=== PATIENT | female | born 2000 | race Caucasian/White ===

== ENCOUNTER → 2024-03-02 11:56 | Outpatient (REF) | payer BC, SELFPAY ==
[2024-03-02 12:44] LABS: % Basophils 1.2 % (0-2); % Immature Granulocytes 0.6 % (0-0.5); % Lymphocytes 22.4 % (20.5-51.1); % Neutrophils 65.8 % (42.2-75.2); Absolute Basophils 0.1 10^3/uL (0-0.2); Absolute Eosinophils 0.1 10^3/uL (0-0.7); Absolute Immature Granulocytes 0.1 10^3/uL (0-0.05); Absolute Lymphocytes 1.7 10^3/uL (1.2-3.4); Absolute Monocytes 0.7 10^3/uL (0.1-0.6); Absolute Neutrophils 5.1 10^3/uL (1.4-6.5); Hematocrit 38.6 % (37.0-47.0); Hemoglobin 14.1 g/dL (12.0-16.0); Mean Corp Hgb Conc. 36.5 g/dL (33.0-37.0); Mean Corpuscular Hgb 31.3 pg (27.0-31.0); Mean Corpuscular Volume 85.8 fL (81.0-99.0); Mean Platelet Volume 9.8 fL (7.4-10.4); Nucleated Red Blood Cells % 0 %; Platelet Count 302 10^3/uL (130-400); Red Cell Dist. Width 14.3 % (11.5-14.5); White Blood Cell Count 7.8 10^3/uL (4.8-10.8)
[2024-03-02 12:51] LABS: ALT (SGPT) 12 U/L (0-35); AST (SGOT) 28 U/L (14-36); Albumin 4.5 g/dl (3.5-5.0); Alkaline Phosphatase 55 U/L (38-126); Blood Urea Nitrogen 10 mg/dl (7-17); Calcium 9.5 mg/dl (8.4-10.2); Carbon Dioxide 23 mmol/L (22-30); Chloride 105 mmol/L (98-107); Glucose 79 mg/dl (70-99); Potassium 4.9 mmol/L (3.5-5.1); Sodium 137 mmol/L (135-145); Total Bilirubin 0.8 mg/dl (0.2-1.3); Total Protein 7.4 g/dl (6.3-8.2); eGFR > 60.00
== END ==
LOC: REG 11:56
PROVIDERS: ATTENDING PHYSICIAN Student in an Organized Health Care Education/Training Program; FAMILY PHYSICIAN Physician Assistant Medical
DX: K62.5 Hemorrhage of anus and rectum (principal)
CPT/HCPCS: 36415; 80053; 83520; 85025

== ENCOUNTER 2025-03-25 23:27 | Emergency (ER) | payer BC, SELFPAY ==
[2025-03-25 23:48] VITALS: BP 111/80
[2025-03-26] VITALS (14 sets, daily range): BP systolic 90–103; BP diastolic 63–76; PULSE 60–76
[2025-03-26 00:08] LABS: Glucose - Point of Care 105 mg/dl (70-99)
[2025-03-26 00:56] LABS: % Basophils 0.5 % (0-2); % Eosinophils 0.9 % (0-6); % Immature Granulocytes 0.4 % (0-0.5); % Lymphocytes 16.3 % (20.5-51.1); % Monocytes 6.5 % (1.7-9.3); % Neutrophils 75.4 % (42.2-75.2); Absolute Basophils 0.1 10^3/uL (0-0.2); Absolute Eosinophils 0.1 10^3/uL (0-0.7); Absolute Immature Granulocytes 0.1 10^3/uL (0-0.05); Absolute Lymphocytes 2.2 10^3/uL (1.2-3.4); Absolute Monocytes 0.9 10^3/uL (0.1-0.6); Absolute Neutrophils 10.2 10^3/uL (1.4-6.5); Hematocrit 35.6 % (37.0-47.0); Hemoglobin 13.2 g/dL (12.0-16.0); Mean Corp Hgb Conc. 37.1 g/dL (33.0-37.0); Mean Corpuscular Hgb 31.1 pg (27.0-31.0); Mean Corpuscular Volume 83.8 fL (81.0-99.0); Mean Platelet Volume 9.2 fL (7.4-10.4); Nucleated Red Blood Cells % 0 %; Platelet Count 300 10^3/uL (130-400); Red Blood Cell Count 4.25 10^6/uL (4.20-5.40); Red Cell Dist. Width 13.8 % (11.5-14.5); White Blood Cell Count 13.5 10^3/uL (4.8-10.8)
--- NOTE | 2025-03-26 00:58 | ED.GENMED ---
History of Present Illness
General
Chief Complaint: Fainting/Passed Out
Source: patient and family
Exam Limitations: none
Time Seen by Provider: 03/26/25 00:01
Nursing documentation reviewed up to this point in time: agreed with
History of Present Illness
History of Present Illness:
Patient presents to ED secondary to unwitnessed syncopal episodes at home, shortly prior to arrival. Patient states that she she was standing in front of the mirror in the bathroom, tried to remove her contact lenses when the incident occurred.
Patient reports struggling with tried to remove one of her contact lenses, when she felt dizzy, hot, and not feeling well. Patient sat on the toilet and splashed herself with cold water, to alleviate her symptoms, when she passed out for
approximately 10 to 15 minutes. Patient found herself facedown in the area between toilet and the bathtub. When she woke up, there was some bleeding noted in her left earlobe, with her 2 earrings having been dislodged intact, with backing in
place. Patient denies headache. Denies dizziness. Denies blurred vision. Denies loss of sensation or weakness. Denies nausea or vomiting. Denies preceding chest pain or palpitations. Denies recent change in diet. Denies recent illness.
Patient does report having travel to [place] this weekend, attending wed. Denies back pain. Denies leg pain or swelling. Denies recent surgery. Patient denies smoking, but does admit to drinking alcohol socially on weekends. Patient also
feels as though she drinks adequate water during the day. In addition, patient states that she has had 2 additional episodes of syncope in her life. First episode occurred when she was in college, while walking, when she felt lightheaded and not
well. Second episode occurred during blood work. Denies family history of heart disease or early deaths in the family.
Past History
Past History
ED Past Medical History: None
ED Past Surgical History: None
Social History
Tobacco: Non-smoker
Alcohol: Occasional
Drug: None
Personal: Single
Living: with roommate
Review of Systems
Review of Systems
Allergies reviewed?: Yes
All Other Systems: ROS reviewed and negative except as documented in HPI and ROS
Constitutional: Reports no symptoms
Respiratory: Reports no symptoms
Cardiac: Reports syncope
ABD/GI: Reports no symptoms
Musculoskeletal: Reports no symptoms
Skin: Reports other (ear pain with laceration)
Neurological: Reports dizzy
Phy Exam
Physical Exam
Physical Exam:
Physical Exam
General: no apparent distress, not acutely ill. afebrile
Head: nc/at. eomi. no nystagmus.
Neck: supple. no meningeal signs.
Heart: s1/s2 regular rate and rhythm
Lungs: no acute respiratory distress. clear bilaterally
Abdomen: normal bowel sounds. not tender.
Neuro: alert and oriented x 3. no focal neurological deficits. normal speech. normal gait.
Skin: 2 puncture wounds noted over left upper outer earlobe, with slow oozing of blood, without pulsatile bleeding.
Psychiatric: well kept. interactive and cooperative
Extremities: no edema. no calf tenderness.
Course
Orders/Labs/Results
Orders:
Orders
03/26/25 00:28
Orthostatic VS- Treatment ONCE
03/26/25 00:33
Complete Blood Count/With Diff Urgent
Comprehensive Metabolic Panel Urgent
D-Dimer Urgent
HCG, Serum Qualitative Screen Urgent
TSH Urgent
03/26/25 00:38
Electrocardiogram (*1) Urgent
Reason for Study: Syncope
EKG- Treatment ONCE
Orthostatic VS- Treatment ONCE
03/26/25 00:40
CT Head W/o Iv Contrast Urgent
Comment:
Reason For Exam: syncope w trauma to head
Test Result ONCE
03/26/25 00:42
Add On- LAB Urgent
Comments:: add on
Tests Added?: HCG serum qualitative
Abnormal Lab Results
03/26/25 03/26/25
00:07 00:33
WBC 13.5 H 10^3/uL
(4.8-10.8)
Hct 35.6 L %
(37.0-47.0)
MCH 31.1 H pg
(27.0-31.0)
MCHC 37.1 H g/dL
(33.0-37.0)
Abs Immat Gran (auto) 0.1 H 10^3/uL
(0-0.05)
Absolute Neuts (auto) 10.2 H 10^3/uL
(1.4-6.5)
Absolute Monos (auto) 0.9 H 10^3/uL
(0.1-0.6)
Neutrophils % 75.4 H %
(42.2-75.2)
Lymphocytes % 16.3 L %
(20.5-51.1)
POC Glucose 105 H mg/dl
(70-99)
03/26/25 00:33
03/26/25 00:33
Vital Signs
Initial and Last Documented VS:
Initial Vital Signs
Temp Pulse Resp BP Pulse Ox
99.0 F 75 14 111/80 98
03/25/25 23:48 03/25/25 23:48 03/25/25 23:48 03/25/25 23:48 03/25/25 23:48
Last Documented Vital Signs
Temp Pulse Resp BP Pulse Ox
99.0 F 81 18 102/65 99
03/25/25 23:48 03/26/25 02:20 03/26/25 02:20 03/26/25 02:20 03/26/25 02:20
MDM/Problems Addressed
MDM/Problems Addressed:
Left earlobe puncture wound noted, with evidence of intact earring having pushed out from the force of fall. No open laceration requiring repair at this point. Pressure applied to the puncture wound with cessation of bleeding.
Unclear etiology behind her syncopal episode, although vagal response, likely cause. Will screen patient with blood work along with CT head, as she has had multiple syncopal episodes in the past.
Patient with an unremarkable workup in ED, including blood work, EKG, orthostatic vital signs, and CT head. Patient will be discharged home in stable condition, to the care of her mother, with recommendation to follow-up with PCP and/or cardiology
for outpatient consultation.
*Pulse Oximetry
Patient hypoxic: no
*EKG
Interpreted by ED Provider?: Yes
EKG Intrepretation Date: 03/26/25
Heart Rate: 80
Rate: normal
Rhythm: sinus
[place]: normal axis
*Critical Care Note
Total Time (30-74mins, 75-104mins- exclusive of procedures): Not Applicable
ED Attending Note
-
Portions of this chart may have been created with voice recognition software.� Occasional wrong word or��sound alike� substitutions may have occurred due to the inherent limitations of voice recognition software.
Discharge Plan
Departure
Patient Disposition: Home (Routine Discharge)
Date of Disposition: 03/26/25
Time of Disposition: 02:20
Patient with high blood pressure during this ER visit?: No
Discharge Problem:
Syncope, Laceration of ear lobe
Instructions: Syncope (Fainting) (DC), Laceration
Prescriptions:
No Action
MULTIVITAMINS
2 tab PO DAILY
Patient Comments:
(gummy bears)
ondansetron 4 MG tablet,disintegrating
4 mg PO TIDPRN PRN (Reason: NAUSEA) Qty: 6 0RF
Referrals:
Monica Bullard DO [Family Provider, Family Practice]
Activity Restrictions/Additional Instructions:
As discussed, please follow-up with your primary care physician for reevaluation, including potential consultation with materials inspector as an outpatient. Please consider return to ED with recurrent symptoms.
Interventions
Interventions:
*Risk Screen - Suicide Last Done: 03/25/25 23:48
*General Assessment Last Done: 03/25/25 23:58
*Neglect/Abuse Screening Last Done: 03/25/25 23:58
*ED- Fall Risk Assessment Last Done: 03/25/25 23:58
*ED COVID-19 Vaccine History Last Done: 03/25/25 23:58
*Nursing Disposition Last Done: 03/26/25 02:22
ED- Cardiac Assessment Last Done: 03/25/25 23:58
ED- Neurological Assessment Last Done: 03/25/25 23:58
Discharge Date and Time
Discharge Date/Time: 03/26/25 02:36
Print Language: [place]IZ[place]
[2025-03-26 01:12] LABS: HCG, Serum Qualitative Screen Negative
[2025-03-26 01:19] LABS: ALT (SGPT) 12 U/L (0-35); AST (SGOT) 17 U/L (14-36); Albumin 4.3 g/dl (3.5-5.0); Alkaline Phosphatase 70 U/L (38-126); Blood Urea Nitrogen 15 mg/dl (7-17); Calcium 9.4 mg/dl (8.4-10.2); Carbon Dioxide 23 mmol/L (22-30); Chloride 107 mmol/L (98-107); Glucose 88 mg/dl (70-99); Potassium 4.1 mmol/L (3.5-5.1); Sodium 139 mmol/L (135-145); Total Bilirubin 0.6 mg/dl (0.2-1.3); Total Protein 6.9 g/dl (6.3-8.2); eGFR > 60.00
[2025-03-26 01:37] LABS: D-Dimer < 0.27 ug/mlFEU (0.00-0.50)
[2025-03-26 01:41] LABS: TSH 2.67 uIU/ml (0.47-4.68)
== END 2025-03-26 02:36 | disposition home or self-care (01) ==
LOC: EMR 23:27
PROVIDERS: EMERGENCY PHYSICIAN Emergency Medicine; FAMILY PHYSICIAN Family Medicine
DX: R55 Syncope and collapse (principal); S01.332A Puncture wound without foreign body of left ear, initial encounter; W18.39XA Other fall on same level, initial encounter
CPT/HCPCS: 99284; 70450; 80053; 82962; 84443; 84703; 85025; 85379; 93005

== ENCOUNTER → 2025-04-05 15:18 | Outpatient (REF) | payer BC, SELFPAY ==
[2025-04-05 16:00] LABS: % Basophils 0.7 % (0-2); % Eosinophils 0.1 % (0-6); % Immature Granulocytes 0.3 % (0-0.5); % Lymphocytes 13.3 % (20.5-51.1); % Monocytes 5.6 % (1.7-9.3); Absolute Basophils 0.1 10^3/uL (0-0.2); Absolute Lymphocytes 1.4 10^3/uL (1.2-3.4); Absolute Monocytes 0.6 10^3/uL (0.1-0.6); Absolute Neutrophils 8.4 10^3/uL (1.4-6.5); Hematocrit 37.9 % (37.0-47.0); Hemoglobin 13.9 g/dL (12.0-16.0); Mean Corp Hgb Conc. 36.7 g/dL (33.0-37.0); Mean Corpuscular Hgb 30.7 pg (27.0-31.0); Mean Corpuscular Volume 83.7 fL (81.0-99.0); Mean Platelet Volume 9.4 fL (7.4-10.4); Nucleated Red Blood Cells % 0 %; Platelet Count 381 10^3/uL (130-400); Red Blood Cell Count 4.53 10^6/uL (4.20-5.40); Red Cell Dist. Width 13.7 % (11.5-14.5); White Blood Cell Count 10.5 10^3/uL (4.8-10.8)
== END ==
LOC: REG 15:18
PROVIDERS: ATTENDING PHYSICIAN Physician Assistant Medical
DX: Z09 Encounter for follow-up examination after completed treatment for conditions other than malignant neoplasm (principal); R11.2 Nausea with vomiting, unspecified; R55 Syncope and collapse; R63.0 Anorexia
CPT/HCPCS: 36415; 85025

== ENCOUNTER 2025-04-20 11:59 | Emergency (ER) | payer BC, SELFPAY ==
[2025-04-20 12:12] VITALS: BP 120/89
[2025-04-20 12:41] LABS: Hematocrit 35.9 % (37.0-47.0); Hemoglobin 13.3 g/dL (12.0-16.0); Mean Corp Hgb Conc. 37.0 g/dL (33.0-37.0); Mean Corpuscular Volume 81.8 fL (81.0-99.0); Nucleated Red Blood Cells % 0 %; Platelet Count 309 10^3/uL (130-400); Red Cell Dist. Width 13.4 % (11.5-14.5)
[2025-04-20 12:49] LABS: APTT 30.8 Sec (23.4-35.0); INR 1.03; PT 13.8 Sec (11.4-14.6)
[2025-04-20 12:51] VITALS: BP 113/84
[2025-04-20 12:53] LABS: HCG, Serum Qualitative Screen Negative
[2025-04-20 12:54] VITALS: BMI 18.1
[2025-04-20 13:00] VITALS: BP 128/75
[2025-04-20 13:06] LABS: ALT (SGPT) 12 U/L (0-35); AST (SGOT) 19 U/L (14-36); Albumin 4.8 g/dl (3.5-5.0); Alkaline Phosphatase 50 U/L (38-126); Blood Urea Nitrogen 12 mg/dl (7-17); Calcium 9.8 mg/dl (8.4-10.2); Carbon Dioxide 21 mmol/L (22-30); Chloride 109 mmol/L (98-107); Estimated Creatinine Clearance 117 ml/min; Glucose 85 mg/dl (70-99); Potassium 4.0 mmol/L (3.5-5.1); Sodium 139 mmol/L (135-145); Total Protein 7.3 g/dl (6.3-8.2); eGFR > 60.00
--- NOTE | 2025-04-20 15:30 | ED.GENMED ---
History of Present Illness
General
Chief Complaint: Rectal Bleeding
Time Seen by Provider: 04/20/25 14:12
History of Present Illness
History of Present Illness:
24-year-old female without significant past medical history presenting for concern of dark stools. Patient notes today she noticed that her stools were very dark in color and was having some pain with ingestion of food in her upper abdomen. Last
week she had an episode of nausea and discomfort which resolved. She talk to her doctor who advised that she come to the hospital for evaluation. She has not any blood thinners. She denies having this issue in the past. She has not been taking
any Pepto-Bismol or iron or anything that may alter the color of her stool. She currently denies acute medical complaints.
Past History
Past History
ED Past Medical History: None
ED Past Surgical History: None
Social History
Tobacco: Non-smoker
Alcohol: Occasional
Drug: None
Personal: Single
Living: with roommate
Phy Exam
Physical Exam
Physical Exam:
General: Well-appearing, no clinical signs of dehydration, nontoxic and in no acute distress
HEENT: protecting airway
Neck: appears supple
CV: Normal heart rate, regular rhythm
Resp: No accessory muscle use, no increased work of breathing, lungs clear to auscultation bilaterally
Abd: Soft and non-distended, no tenderness to palpation. Hemoccult negative brown stool
Extremities: No deformities, no swelling
Neuro: alert, no focal neurologic deficit
: deferred
Rectal: deferred
Psych: Normal affect
Skin: Intact
Course
Orders/Labs/Results
Orders:
Orders
04/20/25 12:18
Test Result ONCE
04/20/25 12:23
Type+Screen Urgent
Complete Blood Count/With Diff Urgent
Comprehensive Metabolic Panel Urgent
HCG, Serum Qualitative Screen Urgent
Comment: Notify provider if positive test present
PTT Urgent
Prothrombin Time Urgent
04/20/25 12:42
ABO2 Urgent
BBK Wristband Number:
Associate notified that ABO2 has been ordered: [id number]
Date: 04/20/25
Time: 12:37
Linux Engineer ID: [id number]
04/20/25 14:26
CT Abd/pelvis W Iv Cont Urgent
Comment:
Reason For Exam: dark stools, upper abd pain
Abnormal Lab Results
04/20/25
12:23
Hct 35.9 L %
(37.0-47.0)
Absolute Neuts (auto) 6.8 H 10^3/uL
(1.4-6.5)
Absolute Monos (auto) 0.7 H 10^3/uL
(0.1-0.6)
Chloride 109 H mmol/L
(98-107)
Carbon Dioxide 21 L mmol/L
(22-30)
04/20/25 12:23
04/20/25 12:23
Vital Signs
Initial and Last Documented VS:
Initial Vital Signs
Temp Pulse Resp BP Pulse Ox
98.3 F 65 16 120/89 98
04/20/25 12:12 04/20/25 12:12 04/20/25 12:12 04/20/25 12:12 04/20/25 12:12
Last Documented Vital Signs
Temp Pulse Resp BP Pulse Ox
98.3 F 52 27 128/75 99
04/20/25 12:12 04/20/25 13:15 04/20/25 13:15 04/20/25 13:00 04/20/25 13:15
MDM/Problems Addressed
MDM/Problems Addressed:
24-year-old female presenting to the emergency department with concern for dark stool. Vital signs are normal.
On exam patient is resting very comfortably, no acute distress. No hemodynamic instability with lower suspicion for any severe GI hemorrhage. Patient notes some upper abdominal discomfort and very dark/black stool. She is currently Hemoccult
negative again without strong suspicion for severe GI bleed. Screening laboratory analysis obtained, normal hemoglobin and renal function. Patient already has an appoint with GI scheduled for . Will screen with CT abdominal imaging to
ensure no structural abnormality or additional acute pathology with likely plan for continued outpatient GI follow-up for possible endoscopy and/or colonoscopy
*Pulse Oximetry
SaO2: 99
Oxygen Mode of Delivery: Room air
Patient hypoxic: no
*Critical Care Note
Total Time (30-74mins, 75-104mins- exclusive of procedures): Not Applicable
ED Attending Note
-
Portions of this chart may have been created with voice recognition software.� Occasional wrong word or��sound alike� substitutions may have occurred due to the inherent limitations of voice recognition software.
Discharge Plan
Departure
Patient with high blood pressure during this ER visit?: No
Condition: Good
Discharge Problem:
Dark stools
Instructions: Abdominal Pain
Prescriptions:
No Action
ondansetron HCl [Zofran] 8 mg Tablet
8 mg PO Q8HPRN PRN (Reason: nausea)
famotidine [Pepcid] 20 mg Tablet
40 mg PO DAILYPRN PRN (Reason: gerd)
calcium carbonate [Tums] 200 mg calcium (500 mg) Tablet,Chewable
200 mg PO BIDPRN PRN (Reason: gerd)
spironolactone 50 mg Tablet
50 mg PO DAILY
bupropion HCl [Wellbutrin XL] 150 mg Tablet Extended Release 24 Hr
150 mg PO DAILY
Referrals:
Monica Bullard DO [Family Provider, Family Practice]
Activity Restrictions/Additional Instructions:
You were seen in the emergency department for concern of dark stools.
You were found to have normal laboratory analysis and CT abdominal imaging. Recommend that you follow-up with your GI doctor as scheduled for possible additional testing
Please follow-up closely with your primary care physician.
Return to the emergency department for any worsening of your symptoms, or any development of chest pain, difficulty breathing, abdominal pain with persistent vomiting and inability to tolerate food or liquid by mouth (concern for dehydration),
weakness, headache or confusion, fever greater than 100.4, or any additional symptoms that are concerning to you.
Thank you for choosing [facility].
Interventions
Interventions:
*Risk Screen - Suicide Last Done: 04/20/25 12:12
*General Assessment Last Done: 04/20/25 12:57
*Neglect/Abuse Screening Last Done: 04/20/25 12:12
*ED- Fall Risk Assessment Last Done: 04/20/25 12:57
*ED COVID-19 Vaccine History Last Done: 04/20/25 13:27
AF-Jhvibg-Avpuoxmorh Assessment Last Done: 04/20/25 12:55
ED- Cardiac Assessment Last Done: 04/20/25 12:55
ED- Pulmonary Assessment Last Done: 04/20/25 12:55
Discharge Date and Time
Print Language: FRISIAN
[2025-04-20 18:16] VITALS: BP 136/74
== END 2025-04-20 18:25 | disposition home or self-care (01) ==
LOC: EMR 11:59
PROVIDERS: Emergency Medicine; EMERGENCY PHYSICIAN Student in an Organized Health Care Education/Training Program; FAMILY PHYSICIAN Family Medicine
DX: K92.1 Melena (principal)
CPT/HCPCS: 99284; 74177; 80053; 84703; 85025; 85610; 85730; 86850; 86900; 86901; Q9967

== ENCOUNTER → 2025-05-03 09:01 | Outpatient (REF) | payer BC, SELFPAY ==
[2025-05-03 09:42] LABS: Urine Character Slightly Cloudy (Clear)
[2025-05-03 10:09] LABS: Very Low Density Lipoprotein 10 mg/dl (0-30)
[2025-05-03 10:19] LABS: HDL Cholesterol 51 mg/dl; LDL Cholesterol, Calculated 60 mg/dl; Magnesium 2.2 mg/dl (1.6-2.3)
[2025-05-03 10:20] LABS: Urine Red Blood Cell 0-2 /HPF (0-2); Urine Squamous Cell >30 /LPF (Few)
[2025-05-03 11:15] LABS: Glycohemoglobin (HgbA1c) 4.4 % (4.0-5.6)
[2025-05-05 16:58] LABS: Glu-6-Phosphate Dehydrogenase 14.4 U/g Hb (9.9-16.6)
== END ==
LOC: REG 09:01
PROVIDERS: ATTENDING PHYSICIAN Physician Assistant Medical
DX: R82.90 Unspecified abnormal findings in urine (principal); Z13.220 Encounter for screening for lipoid disorders; R73.09 Other abnormal glucose; E61.2 Magnesium deficiency; R74.8 Abnormal levels of other serum enzymes; Z02.89 Encounter for other administrative examinations
CPT/HCPCS: 36415; 80061; 80306; 81003; 81015; 82955; 83036; 83735

== ENCOUNTER 2025-05-14 20:22 | Inpatient (IN) | payer BC, SELFPAY ==
[2025-05-14] VITALS (11 sets, daily range): BP systolic 102–153; BP diastolic 73–91; BMI 17.7
[2025-05-14 12:08] LABS: Hematocrit 41.1 % (37.0-47.0); Hemoglobin 15.1 g/dL (12.0-16.0); Mean Corp Hgb Conc. 36.7 g/dL (33.0-37.0); Mean Corpuscular Volume 83.2 fL (81.0-99.0); Nucleated Red Blood Cells % 0 %; Platelet Count 425 10^3/uL (130-400); Red Cell Dist. Width 13.9 % (11.5-14.5)
[2025-05-14 12:19] LABS: HCG, Serum Qualitative Screen Negative
[2025-05-14 12:28] LABS: ALT (SGPT) 18 U/L (0-35); AST (SGOT) 22 U/L (14-36); Albumin 5.3 g/dl (3.5-5.0); Alkaline Phosphatase 62 U/L (38-126); Blood Urea Nitrogen 15 mg/dl (7-17); Calcium 10.2 mg/dl (8.4-10.2); Carbon Dioxide 22 mmol/L (22-30); Chloride 107 mmol/L (98-107); Estimated Creatinine Clearance 98 ml/min; Glucose 93 mg/dl (70-99); Lipase 153 U/L (23-300); Potassium 4.0 mmol/L (3.5-5.1); Sodium 141 mmol/L (135-145); Total Protein 8.8 g/dl (6.3-8.2); eGFR > 60.00
--- NOTE | 2025-05-14 12:30 | ED.GENMED ---
History of Present Illness
General
Chief Complaint: Abdominal Symptoms
Source: patient and family (Mother)
Time Seen by Provider: 05/14/25 12:29
History of Present Illness
History of Present Illness:
24-year-old female started with chest pain last evening. Midsternal. Not pleuritic. No radiation of the back. This is followed by recurrent vomiting overnight. Has been vomiting all night. Ongoing mid chest pain. No shortness of breath no
fever no headache no change in bowel movements. History of eating disorder.
Past History
Past History
ED Past Medical History: Other (Eating disorder)
ED Past Surgical History: None
Social History
Tobacco: Non-smoker
Alcohol: Occasional
Drug: Marijuana (Previous marijuana use)
Personal: Single
Living: with roommate
Review of Systems
Review of Systems
All Other Systems: Not applicable
Constitutional: Denies fever
Respiratory: Reports no symptoms
ABD/GI: Denies abdominal pain or diarrhea
Phy Exam
Physical Exam
Physical Exam:
GENERAL: Alert and oriented. Actively dry heaving into a emesis bag frequently. Thin
EYE: Orbits normal.
NECK: Supple, no significant adenopathy.
ENT: Pharynx without erythema
CARDIAC: Regular rate and rhythm without any obvious murmurs.
LUNGS: Clear breath sounds,normal
ABDOMEN: Soft, without focal tenderness or distention
NEUROLOGICAL: Alert and oriented , grossly non-focal
SKIN: Warm and dry, no rash or lesion, no discoloration, skin intact.
MUSCULOSKELETAL: No edema,no deformity.Good color
PSYCH: Normal and appropriate interaction. Mildly anxious
Course
Orders/Labs/Results
Orders:
Orders
05/14/25 11:33
Electrocardiogram (*1) Urgent
Reason for Study: Abdominal Pain
EKG- Treatment ONCE
05/14/25 11:49
Test Result ONCE
05/14/25 11:50
Complete Blood Count/With Diff Urgent
Comprehensive Metabolic Panel Urgent
HCG, Serum Qualitative Screen Urgent
Lipase Urgent
Magnesium Urgent
Comment: ADD ON
05/14/25 12:37
IV Insert/Care/Rem.- Treatment PRN
0.9% Sodium Chloride 1000 ml [Nss] 1,000 ml IV BOLUS
Ondansetron Injectable [Zofran] 4 mg IV NOW STA
05/14/25 12:50
D-Dimer Urgent
Troponin I Urgent
05/14/25 13:25
CT Chest PE Study Urgent
Comment:
Reason For Exam: chest pain/vomiting.
05/14/25 13:59
US Abdomen Complete/Upper Urgent
Comment:
Reason For Exam: Recurrent vomiting/leukocytosis
05/14/25 14:14
Ondansetron Injectable [Zofran] 4 mg .ROUTE .STK-MED ONE
05/14/25 14:16
Ondansetron Injectable [Zofran] 4 mg IV NOW STA
05/14/25 Dinner
NPO
Allow oral meds: Yes
Allow clear liquids: No
NPO with Ice Chips: Yes
05/14/25 15:17
CefTRIAXone [Rocephin] 1,000 mg IV NOW STA
MetroNIDAZOLE 500 MG/100 ML [Flagyl 500 mg] 100 ml IV NOW
05/14/25 15:29
Acetaminophen 10 mg/ml [Ofirmev] 750 mg Empty Viaflex Container 100 ml [Viaflex Empty Container] 0 ml IV NOW
05/14/25 16:02
CT Chest W/o Iv Contrast Urgent
Comment:
Reason For Exam: include gastrograddin swallowing study
05/14/25 16:31
Diphenhydramine [Benadryl] 25 mg IV NOW STA
Diphenhydramine [Benadryl] 50 mg .ROUTE .STK-MED ONE
Prochlorperazine [Compazine] 10 mg .ROUTE .STK-MED ONE
Prochlorperazine [Compazine] 5 mg IV NOW STA
05/14/25 20:08
Admit/Transfer Patient As Directed
Co-Sign Provider:
Level of Care: Inpatient admission
Assign to:: Telemetry
Physician / Group: jarad dempsey
Diagnosis: pneumomediastinum 2/2 to vomiting from anorexia
Reason for Telemetry: Arrhythmia
Date to Stop Telemetry: 05/17/25
Time to Stop Telemetry: 11:00
Reason for Hospitalization: pneumomediastinum 2/2 to vomiting from anorexia
Expected length of stay greater than two midnights?: Yes
ELOS- Estimated Length of Stay in days: 3
I certify the patient meets the requirements for IP care: Yes
Code Status As Directed
Resuscitation Status: Full Code
05/14/25 20:11
PRN Pain Medication Management As Directed
May give lesser potent ordered pain med per pt: Yes
preference::
Protocol:: Medication orders for pain may be administered in a
manner that supports deferring to patient preference
when the pt is:
- Requesting an ordered lesser potent pain medication.
Least to most potent pain medications are defined
as: acetaminophen < NSAID < tramadol < opioids
(morphine, oxycodone, hydromorphone).
- Requesting a lesser dose of the same medication IF
ORDERED.
- Requesting a less intrusive route of administration
if both routes are prescribed by the provider (PO <
IV).
05/14/25 20:12
0.9% Sodium Chloride [Nss (Preservative Free)] 10 ml IV NOW STA
Pantoprazole [Protonix IV] 40 mg IV NOW STA
05/14/25 20:17
Diphenhydramine [Benadryl] 25 mg IV Q4HPRN PRN
Ondansetron Injectable [Zofran] 4 mg IV Q6HPRN PRN
Prochlorperazine [Compazine] 5 mg IV Q6HPRN PRN
05/14/25 21:10
0.9% Sodium Chloride 1000 ml [Nss] 1,000 ml IV 100 mls/hr
Acetaminophen [Tylenol] 650 mg PO Q4HPRN PRN
05/14/25 21:10
Activity As Directed
Activity Level: As Tolerated
Pneumatic Compression Sleeves As Directed
Type: Knee high
Vital Signs As Directed
Frequency: Per unit guidelines
O2 Therapy [RESP] Routine
Nasal Cannula Liter Flow: 2 LPM
Titrate/Wean O2 to maintain O2 sat greater than (%): 92
Special Instructions: prn for chest pain
Pulse Ox/spot Check [RESP] Routine
Quantity: 1
DX Deep Vein Thrombosis Video Routine
05/15/25 07:30
Complete Blood Count/With Diff IN AM
Comprehensive Metabolic Panel IN AM
05/15/25 08:00
Pantoprazole [Protonix IV] 40 mg IV DAILY
05/16/25 06:00
Complete Blood Count/With Diff IN AM
Comprehensive Metabolic Panel IN AM
05/17/25 06:00
Complete Blood Count/With Diff IN AM
Comprehensive Metabolic Panel IN AM
05/17/25 11:00
DC Protocol for Telemetry ONCE
Abnormal Lab Results
05/14/25
11:50
WBC 13.5 H 10^3/uL
(4.8-10.8)
Plt Count 425 H 10^3/uL
(130-400)
Absolute Neuts (auto) 11.2 H 10^3/uL
(1.4-6.5)
Absolute Monos (auto) 0.8 H 10^3/uL
(0.1-0.6)
Neutrophils % 82.5 H %
(42.2-75.2)
Lymphocytes % 10.5 L %
(20.5-51.1)
Total Protein 8.8 H g/dl
(6.3-8.2)
Albumin 5.3 H g/dl
(3.5-5.0)
05/14/25 11:50
05/14/25 11:50
Vital Signs
Initial and Last Documented VS:
Initial Vital Signs
Temp Pulse Resp Pulse Ox
98.2 F 93 18 98
05/14/25 11:36 05/14/25 11:36 05/14/25 11:36 05/14/25 11:36
Last Documented Vital Signs
Temp Pulse Resp BP Pulse Ox
98.4 F 69 16 131/84 100
05/15/25 15:38 05/15/25 15:38 05/15/25 15:38 05/15/25 15:38 05/15/25 15:38
MDM/Problems Addressed
Differential Diagnosis Includes:
Recurrent vomiting this started with chest pain. Absolutely benign abdomen. Benign neurologic exam. No crepitus. Behaving somewhat like a cyclical vomiting issue however this does not describe the chest pain. Patient had a recent CAT scan of
her abdomen and pelvis that was unremarkable. Patient was rechecked and appears much better. Heart rate improved. Appears much less toxic and uncomfortable. With borderline D-dimer we will get a CT of the chest. Abdomen is totally benign.
Trying to avoid repeat CT of the abdomen and pelvis. Given the totally benign abdomen normal LFTs and lipase feel CT can be held off on. Clinically not obstructed. We will get a ultrasound of the abdomen
*Radiology
Radiology exam reviewed: radiology read reviewed (Pneumomediastinum. No other acute abnormalities) and other (Swallowing study CT shows pneumomediastinum. No esophageal leak or per. No pleural effusion)
*Pulse Oximetry
SaO2: 97
Oxygen Mode of Delivery: Room air
Patient hypoxic: no
*EKG
Interpreted by ED Provider?: Yes
Interpretation: normal
Comparison EKG: no changes
Heart Rate: 72
Rate: normal
Rhythm: sinus
[place]: normal axis
Interval: normal interval
QRS Pattern: normal QRS
Ischemia: no ischemia
*Critical Care Note
Total Time (30-74mins, 75-104mins- exclusive of procedures): 50
Data Reviewed
Review of Other/Old Records Reveals: Labs, Records, Radiology Studies and Testing
Update Note
Update Note:
1515... CT scan shows mediastinal air. Esophagus worse his airway. More concerned about esophageal issue. [place] text both cardiothoracic surgery, pulmonary, GI. They felt given that we have no esophageal surgeons here that it warrant
transferred. [facility] was contacted. Await their callback. Patient's vital signs remained stable. We will cover with antibiotics. Her penicillin allergy was as a child she had hives. Feel cephalosporin is reasonable.
1615... Multiple talks with 10 cardiothoracic surgery. They felt that a swallowing CT study should be done at [facility]. If this was negative she could stay at [facility]. Try to get the protocol from them now.
1645... Cardiothoracic surgery at [facility] sinister protocol. 200 cc water-soluble Gastrografin just prior to study. No reason for IV contrast at this time. Discussed with radiology and techs
1755... Resting comfortably. Stable vital signs. Patient can be admitted here for further care
ED Attending Note
-
Portions of this chart may have been created with voice recognition software.� Occasional wrong word or��sound alike� substitutions may have occurred due to the inherent limitations of voice recognition software.
Discharge Plan
Departure
Patient Disposition: Admit
Date of Disposition: 05/14/25
Time of Disposition: 17:54
Presentation/result/management discussed w/ accepting MD/DO: Hospitalist
Discharge Problem:
Pneumomediastinum, Esophageal perforation versus airway rel, Intractable vomiting
Interventions
Interventions:
*Risk Screen - Suicide Last Done: 05/14/25 11:36
*General Assessment Last Done: 05/14/25 11:36
*ED COVID-19 Vaccine History Last Done: 05/14/25 11:36
*Nursing Disposition Last Done: 05/14/25 21:06
GI-Ysgsaw-Hrvgyuufio Assessment Last Done: 05/14/25 12:23
Discharge Date and Time
Discharge Date/Time: 05/14/25 21:06
[2025-05-14] MEDS: NSS 1000 IV ×2 (12:46→21:51)
[2025-05-14] MEDS: ZOFRAN 4 MG IV ×3 (12:46→20:21)
[2025-05-14 13:14] LABS: D-Dimer 0.49 ug/mlFEU (0.00-0.50)
[2025-05-14 13:25] LABS: Troponin I < 0.012 ng/ml
[2025-05-14] MEDS: FLAGYL 500 MG 100 IV (15:28)
[2025-05-14] MEDS: ROCEPHIN 1000 MG IV (15:28)
[2025-05-14] MEDS: BENADRYL 25 MG IV (16:39)
[2025-05-14] MEDS: COMPAZINE 5 MG IV ×2 (16:39→21:49)
[2025-05-14] MEDS: OFIRMEV 75 MG IV (16:39)
--- NOTE | 2025-05-14 19:22 | HPS.HSE ---
Family Physician
-
Family Physician: PHYSICIAN PRIVATE
Chief Complaint
-
Vomiting, chest pain
History of Present Illness
24-year-old female complaining of chest pain midsternal starting yesterday a.m. and breakfast at group therapy. She was able to tolerate dinner per her friend at bedside then this morning started vomiting again green bile. The patient reports a
recent exacerbation of anorexia x 1 year starting new job after graduation from college. The patient has history of anorexia, prior vaping stopped 1 month ago, marijuana use 1-2 times a week, depression
Medical History
Past Medical History
Past Medical History: Reports Other
Additional Past Medical History:
Anorexia
Depression
Marijuana use
Prior vape use stopped April 2025
Past Surgical History: Reports None
Social History
Tobacco: Other (Stop vaping April 2025)
Alcohol: Occasional (Once a week mixed drinks)
Drug: Marijuana (Smokes 1-2 times a week)
Personal: Single
Employment: Employed (Currently on FMLA leave due to anorexia)
Family History
Family History: Other (Mother history of anorexia, anxiety)
Allergies / Home Medications
Allergies reflects when Allergies were last updated in [employer].
Home Medications with original date entered in [employer]
Allergy/Medication List:
Allergies
Allergy/AdvReac Type Severity Reaction Status Date / Time
Penicillins Allergy Hives Verified 05/14/25 11:40
Home Medications
bupropion HCl 150 mg 24 hr tablet, extended release (Wellbutrin XL) 150 mg PO DAILY 04/20/25
ondansetron HCl 8 mg tablet 8 mg PO Q8HPRN PRN nausea 04/20/25
spironolactone 50 mg tablet 50 mg PO DAILY 04/20/25
Review of Systems
-
History Source: Patient and Other (Friend at bedside)
A 12 point ROS was completed and negative except as noted: Yes
Constitutional: Denies Fever or Chills
EENT: Denies Sore Throat or Runny Nose
Respiratory: Denies Cough or Trouble Breathing
Cardiac: Reports Chest Pain (Midsternal); Denies Diaphoresis, Palpitations or Syncope
Abdomen/GI: Reports Nausea and Vomiting; Denies Abdominal Pain, Diarrhea or Constipated
: Denies Dysuria, Frequency, Flank Pain, Incontinence, Difficulty Voiding or Urgency
Musculoskeletal: Denies Joint Pain or Edema
Skin: Denies Itching or Rash
Neurological: Denies Dizzy, Headache or Weakness
Endocrine: Reports No Symptoms
Hematologic/Lymphatic: Reports No Symptoms
Psych: Reports Calm
Physical Exam
Vital Signs
Vital Signs
Temp Pulse Resp BP Pulse Ox
98.7 F 82 16 102/73 100
05/14/25 19:17 05/14/25 14:00 05/14/25 14:00 05/14/25 14:00 05/14/25 14:00
Physical Exam
General: Comfortable, Conversant and Other (Drowsy secondary to IV Benadryl, Compazine); No Pain, Fever or Chills
HEENT: NormoCephalic, Anicteric, PERRLA, [place] Conjunctivae, No Ptosis and Other (Dry oral mucosa)
Respiratory: Clear and Other (No crepitus); No Wheezes, Rales or Rhonchi
Cardiac: S1/S2 and Regular Rhythm; No Murmur, Rub, Gallop or Peripheral Edema
Breast: Deferred by me
GI: Soft, Non Tender, Non Distended, Normal Bowel Sounds and No Hepatosplenomegaly
Rectal: Deferred by Provider
Genito-urinary: Deferred by me
Musculoskeletal: No Clubbing, No Cyanosis and No Edema
Skin: Warm and Dry; No Rash
Neuro: No Motor Deficits, Nonfocal/grossly intact, Cranial Nerves Intact, No Sensory Deficits and Other (Drowsy due to IV Benadryl, IV Compazine but oriented x 3); No Slurred Speech, Facial Droop or Tremors
Psych: Calm
Laboratory Results
-
05/14/25 11:50
05/14/25 11:50
Laboratory Results
Total Bilirubin 1.3 mg/dl (0.2-1.3) 05/14/25 11:50
AST 22 U/L (14-36) 05/14/25 11:50
ALT 18 U/L (0-35) 05/14/25 11:50
Alkaline Phosphatase 62 U/L (38-126) 05/14/25 11:50
Troponin I < 0.012 ng/ml 05/14/25 12:50
Lipase 153 U/L (23-300) 05/14/25 11:50
Impression/Plan
-
Impression/plan:
Admit to telemetry
#Pneumomediastinum post vomiting/history of Anorexia�BMI 17.6
-Will add O2 2 L as needed
- Current chest pain controlled with Benadryl, Zofran, Compazine
CT chest without IV contrast:
1. There is no evidence for contrast extravasation from the esophagus.
2. Small amount of pneumomediastinum, which appears stable from earlier examination at 1426 hours.(within the left paratracheal aspect of the mediastinum, adjacent to the adin, and adjacent to the
left mainstem bronchus.)
3. The lungs appear clear. No significant pleural effusion is seen bilaterally
#Vomiting 2/2 anorexia(since high school)
- Recent exacerbation of anorexia x 1 year starting new job after graduation from college
IV NSS 1 L given in ER
Continue IV NSS 100 cc an hour
IV Zofran, will try IV Reglan for vomiting in ER
- IV Benadryl as needed
- IV PPI
- Per patient she started group therapy 1 week ago is currently on FMLA
#Depression
Continue Wellbutrin 150 mg daily
#Marijuana use
- Cessation advised
Smokes 1-2 times a week
#Prior nicotine vape use
Friend reports patient stopped 1 month ago
#Cachexia due to anorexia�BMI 17.6
Patient currently in outpatient program for anorexia
DVT prophylaxis
SCDs
Full code
[2025-05-14] MEDS: PROTONIX IV 40 MG IV (20:21)
[2025-05-14] MEDS: NSS (PRESERVATIVE FREE) 10 ML IV (20:21)
[2025-05-14 21:32] LABS: Magnesium 2.1 mg/dl (1.6-2.3)
--- NOTE | 2025-05-14 22:14 | W.PN.UPDATE ---
Update Note
Progress Note Update
Patient seen, interviewed and examined independently.
Please see FIELD HAULER note for full details.
24-year-old woman complaining of chest pain midsternal starting yesterday a.m. and breakfast at group therapy. She was able to tolerate dinner but this morning started vomiting green bile. She reports a recent exacerbation of anorexia/(bulimia?) x
1 year starting new job after graduation from college. She has history of anorexia, prior vaping (stopped 1 month ago), marijuana use 1-2 times a week, depression. At the time of my interview she had recently vomited in her room.
Past Medical History
Anorexia / (possible bulimia?)
Depression
Marijuana use
Prior vape use stopped April 2025
(Stopped vaping April 2025)
Physical Exam
General: Comfortable, Conversant
HEENT: NormoCephalic, Anicteric, PERRLA, [place] Conjunctivae,
Respiratory: Clear
Cardiac: S1/S2 and Regular Rhythm;
GI: Soft, Non Tender, Non Distended,
Skin: Warm and Dry
Psych: Calm
CT chest without IV contrast:
1. There is no evidence for contrast extravasation from the esophagus.
2. Small amount of pneumomediastinum, which appears stable from earlier examination at 1426 hours.
(within the left paratracheal aspect of the mediastinum, adjacent to the adin, and adjacent to the left mainstem bronchus.)
3. The lungs appear clear. No significant pleural effusion is seen bilaterally
Impression/plan:
1. Pneumomediastinum post vomiting/history of Anorexia�BMI 17.6
Current chest pain controlled with Benadryl, Zofran, Compazine
Control nausea, try Reglan for short term
2. Vomiting 2/2 anorexia(since high school)
Recent exacerbation of anorexia x 1 year starting new job after graduation from college
IV NSS 1 L given
Continue IV NSS 100 cc/hr
IV Zofran, (try IV Reglan for vomiting as Zofran is not working well)
IV Benadryl as needed
IV PPI
Gi consult
3. Depression
Continue Wellbutrin 150 mg daily
4. Marijuana use
Cessation advised given complex relationship to vomiting
See FIELD HAULER note for other recommendations.
[2025-05-14] MEDS: REGLAN 10 MG IV (22:35)
[2025-05-15 03:04] VITALS: BP 118/62
[2025-05-15 05:30] VITALS: BMI 16.7
[2025-05-15 07:00] VITALS: BP 111/65
[2025-05-15] MEDS: NSS 1000 IV ×2 (07:44→17:38)
[2025-05-15] MEDS: PROTONIX IV 40 MG IV ×2 (07:45→20:21)
[2025-05-15] MEDS: NSS (PRESERVATIVE FREE) 10 ML IV ×2 (07:45→20:21)
[2025-05-15 09:08] LABS: Hematocrit 35.0 % (37.0-47.0); Hemoglobin 12.6 g/dL (12.0-16.0); Mean Corp Hgb Conc. 36.0 g/dL (33.0-37.0); Mean Corpuscular Volume 85.6 fL (81.0-99.0); Nucleated Red Blood Cells % 0 %; Platelet Count 344 10^3/uL (130-400); Red Cell Dist. Width 13.8 % (11.5-14.5)
[2025-05-15 09:40] LABS: ALT (SGPT) 40 U/L (0-35); AST (SGOT) 31 U/L (14-36); Albumin 4.5 g/dl (3.5-5.0); Alkaline Phosphatase 47 U/L (38-126); Blood Urea Nitrogen 12 mg/dl (7-17); Calcium 8.9 mg/dl (8.4-10.2); Carbon Dioxide 18 mmol/L (22-30); Chloride 109 mmol/L (98-107); Estimated Creatinine Clearance 108 ml/min; Glucose 73 mg/dl (70-99); Potassium 3.9 mmol/L (3.5-5.1); Sodium 138 mmol/L (135-145); Total Protein 7.1 g/dl (6.3-8.2); eGFR > 60.00
[2025-05-15] MEDS: REGLAN 5 MG IV ×3 (10:12→20:20)
[2025-05-15 11:18] VITALS: BP 92/58
--- NOTE | 2025-05-15 12:10 | CON.GI ---
Addendum entered and electronically signed by Tomas Santana MD 05/15/25 19:23:
The patient was seen and examined by me independently in collaboration with the nurse practitioner.
Past medical history/social history/medications/allergies/family history reviewed.
Lab data and imaging data reviewed.
24-year-old female past medical history of anorexia and anxiety presenting with vomiting. Of note she has history of black stool and epigastric pain which she went to the emergency room here on April 20 and had a hemoglobin 13 and was sent home, she
had persistent symptoms and went to [facility] and had endoscopy done which per report was normal. She then has had intermittent vomiting Which developed into severe vomiting and chest pain. She went to the ER yesterday and had a CT scan which
showed pneumomediastinum. I spoke with both the emergency room doctor and the cardiothoracic surgeon yesterday. We had recommended transfer to a tertiary care center and Dr. Garza the emergency room physician spoke with Omar and they recommended a
CT esophagram to evaluate for extravasation and if there was no extravasation to monitor here at [facility]. She continues to have nausea. Reglan seems to help her the most of all of the antiemetics. She had a dose of 5 mg 2 hours ago and I will
give her another dose of 5 mg now and increase it to 10 mg. We will monitor her QTc. She also has a scopolamine patch on. Plan will be to do a Gastrografin study on Saturday to ensure no microperforation. Continue strict NPO. Given
pneumomediastinum, I would not recommended upper endoscopy in this setting. Her hemoglobin has remained stable.
Original Note:
Consultation
-
Date/Time Consultation Requested: 05/14/25 1255
Date/Time Consultation Performed: 05/15/25 1000
Requesting Provider: ARIS Andrade
Performing Provider: Dr. Santana/ARIS Hendrickson
Reason for Consultation: Intractable Vomiting
Medical History
Chief Complaint / HPI
Chief Complaint: vomiting
History of Present Illness:
24 y/o female with PMH of anorexia and anxiety presents to the ER with vomiting. Previously she was here on 04/20/25 with black stools and epigastric discomfort. At that time her Hgb was 13 with stool negative for occult blood. She was sent home. She
states she had persistent sx and the next day she went to [facility] ER and had EGD performed that she states was 'normal'. She states that she has had vomiting of green bile. She does states that she has had intermittent vomting over the past couple
weeks without any associated diarrhea. She does not drink any ETOH or take NSAIDs. She does use marijuana. No sick contacts. She had such severe vomiting that she started to develop chest discomfort. Prompting ER evaluation. We are asked to evaluate
for the same. Zofran and compazine did not help. Reglan did help her in th ER. She had CT chest in ER that showed pneumomediastinum with Small amount of air surrounds the distal trachea and left proximal mainstem bronchus. There is mild wall
thickening involving the anterior esophagus just below the level of the adin. Given history of vomiting, esophageal perforation is not excluded. No evidence of pulmonary embolism or thoracic aortic dissection. Repeat CT with oral contrast obtained
that showed no extravasation. Patient still with nausea this am. Patient denies any F, C, hematochezia, dysphagia or odynophagia. Denies any early satiey. She currnently is battling anorexia and going to start treatment. She does not binge or purge.
She has not crepitus, SOB and is currently in no distress.
Past Medical History
Past Medical History: Other (anorexia, anxiety)
Past Surgical History: None
Social History
Tobacco: Vaping
Alcohol: None
Drug: Marijuana
Personal: Single
Living: With Roomate
Employment: Employed
Family History
Family History: Other (Denies any family hx GI malignancy or IBD)
Allergies / Home Medications
Allergy/AdvReac Type Severity Reaction Status Date / Time
Penicillins Allergy Hives Verified 05/14/25 11:40
�Medication �Instructions �Recorded
bupropion HCl 150 mg 24 hr tablet, 150 mg PO DAILY Mental 04/20/25
extended release (Wellbutrin XL) Health/Anxiety
ondansetron HCl 8 mg tablet 8 mg PO Q8HPRN PRN nausea 04/20/25
spironolactone 50 mg tablet 50 mg PO DAILY Fluid 04/20/25
Retention/Swelling
Review of Systems
-
All other systems: A 12 pt ROS was Negative except as stated above in HPI
Vital Signs
Temp Pulse Resp BP Pulse Ox
98.1 F 85 16 92/58 98
05/15/25 11:18 05/15/25 11:18 05/15/25 11:18 05/15/25 11:18 05/15/25 11:18
Physical Exam
Exam
General: Well Developed and No Apparent Distress
HEENT: Normocephalic, Anicteric, Moist Mucous Membranes and Other (no crepitus, neck supple )
Respiratory: Clear
Cardiac: Regular Rhythm
GI: Soft, Non Tender, Non Distended and Normal Bowel Sounds
Musculoskeletal: No Edema
Skin: Warm and Dry
Neuro: AO x 3
Psych: Calm
Results
WBC 15.6 10^3/uL (4.8-10.8) H 05/15/25 07:30
Hgb 12.6 g/dL (12.0-16.0) 05/15/25 07:30
Hct 35.0 % (37.0-47.0) L 05/15/25 07:30
MCV 85.6 fL (81.0-99.0) 05/15/25 07:30
Plt Count 344 10^3/uL (130-400) 05/15/25 07:30
Absolute Neuts (auto) 12.9 10^3/uL (1.4-6.5) H 05/15/25 07:30
Sodium 138 mmol/L (135-145) 05/15/25 07:30
Potassium 3.9 mmol/L (3.5-5.1) 05/15/25 07:30
Chloride 109 mmol/L (98-107) H 05/15/25 07:30
Carbon Dioxide 18 mmol/L (22-30) L 05/15/25 07:30
BUN 12 mg/dl (7-17) 05/15/25 07:30
Creatinine 0.5 mg/dL (0.6-1.0) L 05/15/25 07:30
Calcium 8.9 mg/dl (8.4-10.2) 05/15/25 07:30
Total Bilirubin 1.1 mg/dl (0.2-1.3) 05/15/25 07:30
AST 31 U/L (14-36) 05/15/25 07:30
ALT 40 U/L (0-35) H 05/15/25 07:30
Alkaline Phosphatase 47 U/L (38-126) 05/15/25 07:30
Lipase 153 U/L (23-300) 05/14/25 11:50
Diagnostic Image Results:
CTA/PE study Chest:
IMPRESSION:
1. Pneumomediastinum. Small amount of air surrounds the distal trachea and left proximal mainstem bronchus.
2. There is mild wall thickening involving the anterior esophagus just below the level of the adin. Given history of vomiting, esophageal perforation is not excluded.
3. No evidence of pulmonary embolism or thoracic aortic dissection.
4. Clear lungs.
Abd US:
IMPRESSION: Normal abdominal ultrasound
CT Chest with water soluble oral contrast:
IMPRESSION:
There is no evidence for contrast extravasation from the esophagus.
Small amount of pneumomediastinum, which appears stable from earlier examination at 1426 hours.
The lungs appear clear. No significant pleural effusion is seen bilaterally.
Prior GI Procedures:
[facility]: per patient 'normal'
Colonoscopy: never
Assessment / Plan
-
24 y/o female with PMH of anorexia and anxiety presents to the ER with vomiting. Previously she was here on 04/20/25 with black stools and epigastric discomfort. At that time her Hgb was 13 with stool negative for occult blood. She was sent home. She
states she had persistent sx and the next day she went to [facility] ER and had EGD performed that she states was 'normal'. She states that she has had vomiting of green bile. She does states that she has had intermittent vomiting over the past
couple weeks without any associated diarrhea. She does not drink any ETOH or take NSAIDs. She does use marijuana. No sick contacts. She had such severe vomiting that she started to develop chest discomfort. Prompting ER evaluation. We are asked to
evaluate for the same. Found to have pneumomediastium on CT with repeat CT ordered with water soluble contrast without signs of extravasation,
Impression:
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
--> no extravasation seen on repeat CT with contrast
Intractable vomiting
Marijuana use
Plan:
-NPO
-IVF
-PPI IV BID
-Patient was not controlled on Zofran or Compazine
-QTc was WNL, would continue with Reglan as she had control of sx with this.
-Could also consider Benadryl and Ativan as well.
-Gastrograffin esophagram on Saturday
-Marijuana cessation, discussed with patient
-If with any change in sx, wosening or signs of esophageal perforation, crepitus would need to transfer patient to tertiary center.
-
-
Thank you for consultation and allowing me to participate in the patient's care. Please call the rn medication GI physician during the after hours with any questions or concerns.
--- NOTE | 2025-05-15 12:55 | W.PN.HOSP.TC ---
Addendum entered and electronically signed by Shirley Bui MD 05/15/25 15:38:
I saw and evaluated the patient independently. I reviewed the resident�s note and agree with findings and plan as documented by Dr. Fermin.
GENERAL: well developed, thin female in no apparent distress
HEENT: NC/AT
HEART: regular rate and rhythm, +S1, +S2
LUNGS : clear to auscultation bilaterally
ABDOM: soft, nontender, nondistended, + bowel sounds
EXT: no cyanosis, clubbing, or edema
NEUROLOGIC: grossly intact
Pneumomediastinum --likely cause vomiting--found by chest CT--appec GI--for Gastrografin esophagram Saturday--cont Reglan for nausea control--strict NPO by GI--cont IVF--PPI---- IF change or worsening of symptoms, patient will need to transfer to
tertiary facility
history of anorexia�BMI 16.7--await dietary input
Nausea and vomiting--? anorexia flare vs marijuana use--reglan
Leukocytosis--likely reactive
Depression-- Continue Wellbutrin
code status--Full code
DVT SCDs
Original Note:
Today's Communication/Plan
-
Nausea management
Plan for Gastrografin swallow study on Saturday
IVF, PPI, NPO
Assessment / Plan
Assessment / Plan
24-year-old female with past medical history of anorexia presented to the hospital with chest pain and found to have pneumomediastinum without esophageal perforation on chest CT.
Pneumomediastinum post vomiting
history of anorexia�BMI 17.6
--CTA/PE revealed pneumomediastinum. CT chest with water-soluble oral contrast revealed no contrast extravasation beyond the esophagus
--N.p.o.
--IVF
--PPI IV twice daily
-- Metoclopramide 5 mg IV as needed every 6 hours, QTC wnl
-- Benadryl 25 q4PRN
-- Per GI, plan for gastro [place] esophagram on Saturday
-- If change or worsening of symptoms, patient will need to transfer to tertiary facility
Nausea and vomiting
-- As needed metoclopramide 5 mg IV as needed every 6 hours
Leukocytosis
--13.5 on admission increased to 15.6
-- Likely reactive as no complaints warranting concerns of infection
-- Monitor for fever and trend WBC
Depression
-- Continue Wellbutrin
Marijuana use
Full code
DVT SCDs
Anticipated Discharge: 24 - 48 hours
Subjective/Interval History
-
Date of Service: May 15, 2025
One episode of vomiting this am. No further nausea or vomiting.
Objective Data
-
Labs:
Laboratory Results
05/15/25
07:30
WBC 15.6 H
Hgb 12.6
Hct 35.0 L
Plt Count 344
Sodium 138
Potassium 3.9
Chloride 109 H
Carbon Dioxide 18 L
BUN 12
Creatinine 0.5 L
Glucose 73
Calcium 8.9
Total Bilirubin 1.1
AST 31
ALT 40 H
Alkaline Phosphatase 47
Vital Signs:
Vital Signs
Temp Pulse Resp BP Pulse Ox
98.1 F 85 16 92/58 98
05/15/25 11:18 05/15/25 11:18 05/15/25 11:18 05/15/25 11:18 05/15/25 11:18
I&O
05/14/25 05/15/25 05/16/25
06:59 06:59 06:59
Output Total 50 / 50
Balance -50 / -50
Review of Systems
-
History Source: Patient
Constitutional: Reports No Symptoms
EENT: Reports No Symptoms Reported
Respiratory: Reports No Symptoms
Cardiac: Reports No Symptoms
Abdomen/GI: Reports No Symptoms
Skin: Reports No Symptoms
Neuro: Reports No Symptoms
Physical Exam
-
General: No Apparent Distress and Comfortable
HEENT: Normocephalic
Respiratory: Clear to Auscultation
Cardiac: Regular Rhythm and S1/S2
GI: Soft, Nontender, Nondistended and Normal Bowel Sounds
Musculoskeletal: No Edema
Skin: Warm and Dry
Neuro: AO x 3
Psych: Calm
[2025-05-15 15:38] VITALS: BP 131/84
[2025-05-15] MEDS: TRANSDERM-SCOP 1 PATCH TRANSDERM (18:04)
[2025-05-15 19:00] VITALS: BP 134/91
[2025-05-15 23:00] VITALS: BP 133/89
[2025-05-16] MEDS: REGLAN 10 MG IV ×4 (00:40→19:40)
[2025-05-16] MEDS: BENADRYL 25 MG IV ×4 (01:50→20:31)
[2025-05-16] MEDS: NSS 1000 IV (01:51)
[2025-05-16 03:00] VITALS: BP 127/85
[2025-05-16 06:49] LABS: Hematocrit 34.3 % (37.0-47.0); Hemoglobin 12.7 g/dL (12.0-16.0); Mean Corp Hgb Conc. 37.0 g/dL (33.0-37.0); Mean Corpuscular Volume 83.7 fL (81.0-99.0); Nucleated Red Blood Cells % 0 %; Platelet Count 329 10^3/uL (130-400); Red Cell Dist. Width 13.6 % (11.5-14.5)
[2025-05-16 07:05] LABS: ALT (SGPT) 49 U/L (0-35); AST (SGOT) 31 U/L (14-36); Albumin 4.4 g/dl (3.5-5.0); Alkaline Phosphatase 45 U/L (38-126); Blood Urea Nitrogen 9 mg/dl (7-17); Calcium 9.0 mg/dl (8.4-10.2); Carbon Dioxide 18 mmol/L (22-30); Chloride 107 mmol/L (98-107); Estimated Creatinine Clearance 108 ml/min; Glucose 78 mg/dl (70-99); Potassium 4.0 mmol/L (3.5-5.1); Sodium 136 mmol/L (135-145); Total Protein 6.9 g/dl (6.3-8.2); eGFR > 60.00
[2025-05-16 07:34] VITALS: BP 115/74
[2025-05-16] MEDS: NSS (PRESERVATIVE FREE) 10 ML IV ×2 (08:08→19:40)
[2025-05-16] MEDS: PROTONIX IV 40 MG IV ×2 (08:09→19:39)
[2025-05-16] MEDS: NSS (PRESERVATIVE FREE) IV (09:09)
--- NOTE | 2025-05-16 10:35 | W.PN.HOSP.TC ---
Addendum entered and electronically signed by Shirley Bui MD 05/16/25 15:59:
I saw and evaluated the patient independently. I reviewed the resident�s note and agree with findings and plan as documented by Dr. Fermin.
GENERAL: well developed, thin female in no apparent distress
HEENT: NC/AT
HEART: regular rate and rhythm, +S1, +S2
LUNGS : clear to auscultation bilaterally
ABDOM: soft, nontender, nondistended, + bowel sounds
EXT: no cyanosis, clubbing, or edema
NEUROLOGIC: grossly intact
Pneumomediastinum --likely caused by vomiting--found by chest CT--appec GI--for Gastrografin esophagram Saturday--cont Reglan for nausea control but will give scheduled rather than PRN--strict NPO by GI--cont IVF--PPI---- IF change or worsening of
symptoms, patient will need to transfer to tertiary facility
history of anorexia�BMI 16.7--await dietary input
Nausea and vomiting--? anorexia flare vs marijuana use--reglan
Leukocytosis--likely reactive--improving
Depression-- Continue Wellbutrin
code status--Full code
DVT SCDs
Original Note:
Today's Communication/Plan
-
N.p.o.
Scheduled antiemetics
Gastrografin for Saturday
Assessment / Plan
Assessment / Plan
24-year-old female with past medical history of anorexia presented to the hospital with chest pain and found to have pneumomediastinum without esophageal perforation on chest CT.
Pneumomediastinum post vomiting
history of anorexia�BMI 17.6
--CTA/PE revealed pneumomediastinum. CT chest with water-soluble oral contrast revealed no contrast extravasation beyond the esophagus
--N.p.o.
--IVF
--PPI IV twice daily
-- Metoclopramide 5 mg IV as needed every 6 hours -> now scheduled 10mg q6 for persistent nausea and emesis. Repeat QTc wnl.
-- Benadryl 25 q4PRN
-- Per GI, plan for gastro [place] esophagram on Saturday
-- If change or worsening of symptoms, patient will need to transfer to tertiary facility
Nausea and vomiting
-- Scheduled metoclopramide 10 mg every 6
-- Benadryl 25 every 4 as needed
Leukocytosis
--13.5 on admission increased to 15.6-now downtrending
-- Likely reactive as no complaints warranting concerns of infection
-- Monitor for fever and trend WBC
Depression
-- Continue Wellbutrin
Marijuana use
Full code
DVT SCDs
Anticipated Discharge: 24 - 48 hours
Subjective/Interval History
-
Date of Service: May 16, 2025
1 episode of emesis overnight and persistent nausea.
Objective Data
-
Labs:
Laboratory Results
05/16/25
06:31
WBC 11.7 H
Hgb 12.7
Hct 34.3 L
Plt Count 329
Sodium 136
Potassium 4.0
Chloride 107
Carbon Dioxide 18 L
BUN 9
Creatinine 0.4 L
Glucose 78
Calcium 9.0
Total Bilirubin 1.0
AST 31
ALT 49 H
Alkaline Phosphatase 45
Vital Signs:
Vital Signs
Temp Pulse Resp BP Pulse Ox
98.6 F 73 16 115/74 98
05/16/25 07:34 05/16/25 07:34 05/16/25 07:34 05/16/25 07:34 05/16/25 07:34
I&O
05/15/25 05/16/25 05/17/25
06:59 06:59 06:59
Intake Total 1025 / 1025
Output Total 50 / 50
Balance 975 / 975
Review of Systems
-
History Source: Patient
Constitutional: Reports No Symptoms
EENT: Reports No Symptoms Reported
Cardiac: Reports No Symptoms
Abdomen/GI: Reports Nausea and Vomiting
Neuro: Reports No Symptoms
Physical Exam
-
General: Other (appears nauseated leaning over prepared to vomit)
HEENT: Normocephalic
Respiratory: Clear to Auscultation
Cardiac: Regular Rhythm and S1/S2
GI: Soft, Nontender, Nondistended and Normal Bowel Sounds
Musculoskeletal: No Cyanosis and No Edema
Skin: Warm and Dry
Neuro: AO x 3
Psych: Calm
[2025-05-16 11:06] VITALS: BP 123/82
[2025-05-16] MEDS: SODIUM BICARBONATE 1150 MEQ IV (11:37)
--- NOTE | 2025-05-16 14:32 | PTCARENOTE ---
Patient ambulating in [place] with a steady gait. Patient has no c/o pain. Patient with intermittent nausea, no vomiting. Patient is just spitting saliva in emesis bag due to nausea. Reglan and Benadryl given with relief. Friend at bedside.
[2025-05-16 15:54] VITALS: BP 123/81
[2025-05-16 16:20] VITALS: BMI 16.7
--- NOTE | 2025-05-16 16:35 | CM ---
Met with patient to obtain information for assessment. Patient lives with her mother in a two story home with three steps to enter. She is independent with her ADLs, personal care, bathing and dressing. 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 She has no DME. She has never had VN or been to a SNF.
Plan: Case management will continue to follow and assist with discharge planning. Home when stable.
[2025-05-16 19:00] VITALS: BP 124/91
[2025-05-16 23:00] VITALS: BP 120/83
[2025-05-17] MEDS: BENADRYL 25 MG IV ×6 (01:51→22:25)
[2025-05-17] MEDS: REGLAN 10 MG IV ×4 (01:52→20:17)
--- NOTE | 2025-05-17 02:33 | PTCARENOTE ---
Pt's family reports pt is vomiting. No emesis observed, saliva in emesis bag. Persistent nausea. Medicated w/PRN benadryl per MD order (refer to MAR). Requests door to remain closed. Plan of care reviewed. #22 RFA w/sterile h2o and 150 meq
bicarb at 60 mL/hr.
[2025-05-17 03:00] VITALS: BP 119/75
[2025-05-17] MEDS: SODIUM BICARBONATE 1150 MEQ IV (05:50)
[2025-05-17 06:00] VITALS: BMI 16.7
[2025-05-17 06:28] LABS: Hematocrit 36.1 % (37.0-47.0); Hemoglobin 13.4 g/dL (12.0-16.0); Mean Corp Hgb Conc. 37.1 g/dL (33.0-37.0); Mean Corpuscular Volume 81.7 fL (81.0-99.0); Nucleated Red Blood Cells % 0 %; Platelet Count 355 10^3/uL (130-400); Red Cell Dist. Width 13.2 % (11.5-14.5)
[2025-05-17 06:44] LABS: ALT (SGPT) 51 U/L (0-35); AST (SGOT) 32 U/L (14-36); Albumin 4.6 g/dl (3.5-5.0); Alkaline Phosphatase 50 U/L (38-126); Blood Urea Nitrogen 11 mg/dl (7-17); Calcium 9.1 mg/dl (8.4-10.2); Carbon Dioxide 23 mmol/L (22-30); Chloride 98 mmol/L (98-107); Estimated Creatinine Clearance 108 ml/min; Glucose 61 mg/dl (70-99); Potassium 3.7 mmol/L (3.5-5.1); Sodium 134 mmol/L (135-145); Total Protein 7.1 g/dl (6.3-8.2); eGFR > 60.00
[2025-05-17 07:29] VITALS: BP 120/81
[2025-05-17] MEDS: NSS (PRESERVATIVE FREE) IV (07:43)
[2025-05-17] MEDS: DEXTROSE 50% SYRINGE 25 GRAMS IV (07:55)
[2025-05-17] MEDS: PROTONIX IV 40 MG IV ×2 (07:56→20:16)
[2025-05-17] MEDS: NSS (PRESERVATIVE FREE) 10 ML IV ×2 (07:56→20:16)
[2025-05-17] MEDS: D5W 1000 IV (07:56)
--- NOTE | 2025-05-17 08:34 | W.PN.HOSP.TC ---
Today's Communication/Plan
-
Esophagus XRay negative. Consult speech and swallow sent.
Telemetry discontinued.
Continue monitoring.
Assessment / Plan
Assessment / Plan
24 year old female with a past medical history of anorexia and bulimia who presented with chest pain s/p episode of vomiting the day before arrival. She reports exacerbation of anorexia for the past year after starting a new job after graduation
from college. Chest CT revealed pneumomediastinum without esophageal perforation.
# Pneumomediastinum s/p vomiting
# History of anorexia, BMI 16.7
CTA/PE revealed pneumomediastinum. CT chest with water soluble oral contrast revealed no contrast extravasation beyond esophagus.
Esophagus X-Ray: Nonionic contrast esophagogram demonstrated no evidence of thoracic esophageal obstruction, mass, ulcer, exacerbation/fecal cultures.
Speech and swallow consult sent to resume diet.
Continued IVF
PPI IV twice daily
Reglan 5 mg IV q6hPRN, QTc wnl, telemetry discontinued
If change or worsening of symptoms, patient will need transfer to tertiary facility
# Hypoglycemia
Initial glucose 61, D5 given
Repeat glucose was�143 at 9 AM
# Nausea and vomiting
Reglan 5 mg IV q6hPRN, QTc wnl
#Leukocytosis�
13.5 on arrival, increased to 12.6, but 10.6 today
Likely reactive, no complaints warranting concerns of infection
Trend WBC, monitor for fever
# Depression
Continue Wellbutrin
Marijuana use
Full code, DVT SCDs
Anticipated Discharge: 24 - 48 hours
Subjective/Interval History
-
Date of Service: May 17, 2025
Patient has been retching and has had abdominal soreness due to her. No new symptoms.
Objective Data
-
Labs:
Laboratory Results
05/17/25
05:41
WBC 10.6
Hgb 13.4
Hct 36.1 L
Plt Count 355
Sodium 134 L
Potassium 3.7
Chloride 98
Carbon Dioxide 23
BUN 11
Creatinine 0.5 L
Glucose 61 L
Calcium 9.1
Total Bilirubin 1.4 H
AST 32
ALT 51 H
Alkaline Phosphatase 50
Vital Signs:
Vital Signs
Temp Pulse Resp BP Pulse Ox
98.1 F 75 14 120/81 98
05/17/25 07:29 05/17/25 07:29 05/17/25 07:29 05/17/25 07:29 05/17/25 07:29
I&O
05/16/25 05/17/25 05/18/25
06:59 06:59 06:59
Intake Total 1025 / 1025 300 / 300
Output Total 50 / 50
Balance 975 / 975 300 / 300
Review of Systems
-
History Source: Patient
All other systems: Reviewed and negative
Physical Exam
-
General: No Apparent Distress, Comfortable, Cachectic and Other
HEENT: Normocephalic, Atraumatic, Anicteric, Nose Appears Normal and Ears Appear Normal
Respiratory: Clear to Auscultation
Cardiac: Regular Rhythm and S1/S2
GI: Soft, Nontender, Nondistended and Normal Bowel Sounds
Genito-urinary: No Costovertebral Tender
Musculoskeletal: No Clubbing, No Cyanosis and No Edema
Skin: Warm and Dry
Neuro: Awake and AO x 3
Hematologic / Lymphatic: No Lymphadenopathy
Psych: Calm
Data Reviewed
-
Labs: Labs Reviewed by me and Discussed with Physician
Old Records: Reviewed
--- NOTE | 2025-05-17 08:48 | W.PN.GI.CBS2 ---
Today's Communication / Plan
-
gastrografin study
Assessment / Plan
-
24-year-old female past medical history of anorexia and anxiety presenting with vomiting. Of note she has history of black stool and epigastric pain which she went to the emergency room here on April 20 and had a hemoglobin 13 and was sent home, she
had persistent symptoms and went to [facility] and had endoscopy done which per report was normal. She then has had intermittent vomiting Which developed into severe vomiting and chest pain. She went to the ER and had a CT scan which showed
pneumomediastinum. I spoke with both the emergency room doctor and the cardiothoracic surgeon on admission. We had recommended transfer to a tertiary care center and Dr. Garza the emergency room physician spoke with Omar and they recommended a CT
esophagram to evaluate for extravasation and if there was no extravasation to monitor here at [place]. She continues to have nausea although improving.
Recommendations:
- Gastrografin - if normal advance to clear liquid diet
- PPI BID
- Antiemetics
- Monitor QTc on antiemetics
Subjective
Subjective
Date of Service: May 17, 2025
nausea present intermittently
Objective
Data Reviewed
Laboratory Data:
Laboratory Results
05/17/25 05:41
05/17/25 05:41
Laboratory Results
Magnesium 2.1 mg/dl (1.6-2.3) 05/14/25 11:50
Total Bilirubin 1.4 mg/dl (0.2-1.3) H 05/17/25 05:41
AST 32 U/L (14-36) 05/17/25 05:41
ALT 51 U/L (0-35) H 05/17/25 05:41
Alkaline Phosphatase 50 U/L (38-126) 05/17/25 05:41
Lipase 153 U/L (23-300) 05/14/25 11:50
Vital Signs and I&O:
Vital Signs
Temp Pulse Resp BP Pulse Ox
98.1 F 75 14 120/81 98
05/17/25 07:29 05/17/25 07:29 05/17/25 07:29 05/17/25 07:29 05/17/25 07:29
I&O
05/16/25 05/17/25 05/18/25
06:59 06:59 06:59
Intake Total 1025 / 1025 300 / 300
Output Total 50 / 50
Balance 975 / 975 300 / 300
Physical Exam
Physical Exam
GI: Non Distended and Non Tender
[2025-05-17 09:00] LABS: Glucose - Point of Care 141 mg/dl (70-99)
--- NOTE | 2025-05-17 09:04 | W.PN.UPDATE ---
Addendum entered and electronically signed by Jayson Pierre MD 05/17/25 13:33:
moderate protein calorie malnutrition of chronic illness
Original Note:
Update Note
Progress Note Update
I saw and evaluated the patient. I reviewed the resident�s note and agree with findings and plan as documented in the resident�s note.
Patient reports dry heaving and some abdominal cramping.
Patient seen and examined with RN Kari Wolfe present at bedside for the entirety of the interview and physical exam:
Gen: NAD, awake and alert, appears malnourished/cachectic
Eyes: EOMI, PERRLA, no scleral icterus.
Neck: supple.
CV: RRR, +S1/S2, no m/r/g.
Resp: CTAB, no rales, wheezes, or rhonchi.
Abd: +BS, soft, NT, ND
Skin: No rashes.
Neuro: CN 2-12 intact, non-focal.
Psych: Appears mildly anxious
CT chest 05/14/25:No evidence for contrast extravasation from the esophagus. Small amount of pneumomediastinum, which appears stable from earlier examination at 1426 hours. The lungs appear clear. No significant pleural effusion is seen bilaterally.
Abd U/S: Normal abdominal ultrasound.
Pneumomediastinum:
-imaging above
-for Gastrografin esophagram today
-GI following
N/V:
-Could be related to anorexia versus cannabinoid hyperemesis
-cont Reglan
Other problems:
Anorexia: BMI 16.7, Nutrition to see
Leukocytosis, likely reactive, resolved
Depression: cont Wellbutrin
FULL/SCDs
--- NOTE | 2025-05-17 11:31 | PN.CDI ---
CDI
- -
CDI:
Physician Documentation Request
Admit Date: 05/14/25 20:22
Dear Doctor Ignacio,
Please review the following and provide your response in the progress notes.
Clinical Indicators:
Pt admitted with Pneumomediastinum/Anorexia with BMI 16.7/Cachexia
Documented in update note 05/17,' appears malnourished/cachectic...'
Nutrition consult 05/16, ' Pt reports lost weight over past few days, has had n/v since 05/13. Pt has had intermitted vomiting since 04/20.....CBW: 103 lbs 4.8 oz BMI 16.7 underweight range (05/15). Pts weight was 108 lbs 04/20 reflective of a 5 lb (5%) in
1 month significant. During visit able to visualize slight protrusion of clavicle temporal wasting. With observed muscle and fat wasting and 5% weight loss in 1 month pt meets AND/ASPEN criteria for moderate protein calorie malnutrition of chronic
illness....Subcutaneous loss over rib cage severity Moderate ,Clavicle moderate ...'
If possible, please provide in your progress notes, additional specificity regarding the severity of the malnutrition:
Moderate
Other (please specify)
[place] Criteria (ACP Hospitalist 2017)
2 or more criteria must be present for either
non severe or severe malnutrition
Note that the criteria differs related to the
presence of an acute or chronic illness
Acute Illness Chronic Illness
Energy Intake Non Severe: <75% for >7 days Non Severe: <75% for >1 month
Severe: <50% for >5 days Severe: <75% for >1 month
Weight Loss Non Severe: 1-2% over 1 week Non Severe: 5% over 1 month
5% over 1 month 7.5% over 3 months
7.5% over 3 months 10% over 6 months
1 year N/A 20% over 1 year
Severe: >2% over 1 week Severe: >5% over 1 month
>5% over 1 month >7.5% over 3 months
>7.5% over 3 months >10% over 6 months
1 year N/A >20% over 1 year
Body Fat Non Severe: Mild Decrease Non Severe: Mild Loss
Severe: Moderate Decrease Severe: Severe Loss
Muscle Mass Non Severe: Mild Decrease Non Severe: Mild Loss
Severe: Moderate Decrease Severe: Severe Loss
Fluid Accumulation Non Severe: Mild Accumulation Non Severe: Mild Accumulation
Severe: Moderate to severe Severe: Moderate to severe
accumulation accumulation
Reduced Program Host Strength Non Severe: N/A Non Severe: N/A
Severe: Measurably reduced Severe: Measurably reduced
Additional criteria that can be used to Determine if Mild or Moderate Malnutrition (Merck Manual 2018)
Mild Moderate Severe
Albumin gm/dl <3.0 gm/dl <2.5 gm/dl <2.0 gm/dl
Pre Albumin mg/dl <15 gm/dl <10 mg/dl <5.0 mg/dl
BMI <18.5 <17 <16
Use of terms such as suspected, likely, concern for, or probable (associated with a specific diagnosis that is being evaluated, monitored, or treated as if it exists) are acceptable and can be coded in the inpatient setting, when documented at the
time of discharge.
Thank you,
Nani Ryan RN
CDI Specialist
[place] [facility]
Please use your independent medical judgment in providing your response.
[2025-05-17 11:54] VITALS: BP 124/84
--- NOTE | 2025-05-17 14:24 | W.PN.UPDATE ---
Update Note
Progress Note Update
Gastrografin with no extravation
Clear liquid diet
PPI po bid x8 weeks then daily
antiemetics
if tolerates clears can advance
Fup with outaptient GI [facility]
GI will sign off pls call with ?s
[2025-05-17 15:49] VITALS: BP 137/96
[2025-05-17 20:23] LABS: Glucose - Point of Care 97 mg/dl (70-99)
[2025-05-17 23:00] VITALS: BP 123/79
[2025-05-18] MEDS: REGLAN 10 MG IV ×2 (02:06→08:46)
[2025-05-18] MEDS: BENADRYL 25 MG IV ×2 (02:34→06:40)
[2025-05-18] MEDS: D5W IV ×3 (03:55→16:02)
[2025-05-18 07:19] LABS: Hematocrit 40.3 % (37.0-47.0); Hemoglobin 15.0 g/dL (12.0-16.0); Mean Corp Hgb Conc. 37.2 g/dL (33.0-37.0); Mean Corpuscular Volume 81.6 fL (81.0-99.0); Nucleated Red Blood Cells % 0 %; Platelet Count 375 10^3/uL (130-400); Red Cell Dist. Width 13.3 % (11.5-14.5)
[2025-05-18 07:42] VITALS: BP 128/89
[2025-05-18 07:47] LABS: ALT (SGPT) 48 U/L (0-35); AST (SGOT) 28 U/L (14-36); Albumin 4.8 g/dl (3.5-5.0); Alkaline Phosphatase 49 U/L (38-126); Blood Urea Nitrogen 5 mg/dl (7-17); Calcium 9.4 mg/dl (8.4-10.2); Carbon Dioxide 24 mmol/L (22-30); Chloride 100 mmol/L (98-107); Estimated Creatinine Clearance 108 ml/min; Glucose 85 mg/dl (70-99); Magnesium 2.1 mg/dl (1.6-2.3); Potassium 3.6 mmol/L (3.5-5.1); Sodium 136 mmol/L (135-145); Total Protein 7.6 g/dl (6.3-8.2); eGFR > 60.00
--- NOTE | 2025-05-18 08:40 | W.PN.UPDATE ---
Update Note
Progress Note Update
I saw and evaluated the patient. I reviewed the resident�s note and agree with findings and plan as documented in the resident�s note.
Patient reports vomiting this AM.
Patient seen and examined with RN Ele Nolan as well as pt's mother present at bedside for the entirety of the interview and physical exam:
Gen: NAD, awake and alert, appears malnourished/cachectic
Eyes: EOMI, PERRLA, no scleral icterus.
Neck: supple.
CV: remains RRR, +S1/S2, no m/r/g.
Resp: CTAB anteriorly, no rales, wheezes, or rhonchi.
Abd: remains +BS, soft, NT, ND
Skin: No rashes.
Neuro: CN 2-12 intact, non-focal.
Psych: normal mood, slightly flat affect
CT chest 05/14/25: No evidence for contrast extravasation from the esophagus. Small amount of pneumomediastinum, which appears stable from earlier examination at 1426 hours. The lungs appear clear. No significant pleural effusion is seen bilaterally.
Abd U/S: Normal abdominal ultrasound.
Esophagram 05/17/25: Nonionic contrast esophagram demonstrating no evidence of thoracic esophageal obstruction, mass, ulcer or extravasation/leak of contrast.
Pneumomediastinum:
-imaging above, esophagram without extravasation/leak
-will c/s pulm for opinion
N/V:
-Could be related to anorexia versus cannabinoid hyperemesis
-stop Reglan as N/V most likely related to anorexia +/- bulimia. Also want to avoid extrapyramidal side effects.
-check ECG to monitor QTc
-GI saw in c/s and signed off. At request of family will as GI to see again today.
-resume IVFs
Other problems:
Anorexia: BMI 16.7, Nutrition saw in c/s, moderate protein calorie malnutrition of chronic illness. Psych c/s.
Leukocytosis, likely reactive, resolved
Depression: cont Wellbutrin
FULL/SCDs
Total time spent on today's encounter was 50 minutes which included time spent in counseling the patient/family regarding diagnosis and treatment plan as listed above, goals of care, and symptom management. Case was discussed with nursing staff,
specialists, and care coordinators/case management. All labs and imaging personally reviewed by me. Remainder the time spent in detailed review of previous records, lab data, imaging, and other medical provider documentation.
[2025-05-18] MEDS: NSS (PRESERVATIVE FREE) 10 ML IV ×2 (08:45→20:28)
[2025-05-18] MEDS: PROTONIX IV 40 MG IV ×2 (08:45→20:27)
[2025-05-18] MEDS: NSS (PRESERVATIVE FREE) IV (09:05)
--- NOTE | 2025-05-18 10:11 | CM ---
CM continues to follow for discharge planning. Pulmonary consult ordered; GI signed off, but family requesting they come to see Aric again today. Dr. Pierre working on GI visit for today.
Plan: Case management will continue to follow and assist with discharge planning. Home when stable.
--- NOTE | 2025-05-18 11:36 | CS.PSYCHR ---
Consult Summary - Psychiatry
-
Pt is a 24 yo female who presented with mid-sternal chest pain after a night of nausea and vomiting. Pt admitted for medical work-up, found to have a small pneumomediastinum on CT, no apparent esophageal injury. Pt has history of eating disorder-
anorexia nervosa. Current BMI is low at 17.6, noted to have moderate protein calorie malnutrition. Pt states symptoms of eating disorder started in Freshman year of college, but resolved when she moved into an apartment, did not require specific
treatment per pt. She reports anorexia has been exacerbated over the past 6 months, since she moved back home after graduating from college, started a job which she states may not be what she wants. Pt reports she often works through lunch, does
not eat much breakfast, so her main meal each day has been dinner. Pt has hx of using MJ 1 to 2 times per week, states she used more often in Nov/Dec, then decreased use recently. She was started on Wellbutrin XL 150 mg about one month ago by her
PCP, reports she has felt more anxious lately, had an anxiety attack last week, which is rare for her. Pt states she often feels nausea or gagging with worse anxiety. Pt denies self-inducing vomiting, states that is not her thing. She also denies
any hx of binge eating, and denies exercising. She states her current weight is the lowest she has been. Pt states in the past she would be happy about it, but now accepts that this is not good for her health. Pt states she got her period here at
. Pt states she likes the groups at [facility]- just started the program 2 to 3 weeks ago, took medical leave from her job. Pt states she saw the psychiatrist there, who felt Wellbutrin XL was not the best option, could increase anxiety.
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
Psych Hx: eating disorder onset in college per pt, improved without treatment. Hx of anxiety, saw a couple of therapists, has not been on medication
Denies any hx of inpatient tx
SH: college grad, stated she moved back with family, reports the kitchen is her mother's 'safe space.' Staff reports pt has been living with her partner who is a nurse. On medical leave from her job.
MSE: alert, sitting up on bed in no distress, calm, cooperative, with good eye contact. Speech coherent, thought goal-directed. Affect smiling/pleasant, appropriate, somewhat constricted. Mood stable, denies significant depression. Denies SI.
No signs of psychosis. Insight appears fair.
Imp: Anorexia Nervosa, with low BMI. No evidence of bulimia or purging on interview
Cannabis use, unspecified
Rec: returning to the IOP program at [facility] would seem to be the most appropriate option, when medically cleared. Pt does not seem to need inpatient treatment
Would continue to hold off Wellbutrin XL; pt is probably better off without it, for potential increase in anxiety, possible nausea, as well as playing into drive for weight loss
Psychiatry will follow and reassess as pt advances her diet.
--- NOTE | 2025-05-18 12:00 | W.PN.GI.CBS2 ---
Addendum entered and electronically signed by Angely Arora MD 05/18/25 17:36:
I saw and examined the patient.
The PLASMA PROCESSING TECHNICIAN or PA's note was reviewed and I agree with the note.
Comment: Patient reports nausea this morning with 1 episode of vomiting bilious material, since she started the Zofran, nausea has been better. No abdominal pain. No heartburn or trouble swallowing. Reports having bowel movement today.
- Currently tolerating full liquid diet with [id number] Zofran. Patient decided to hold off on Reglan due to side effects.
Tomorrow if continues to feel well, okay to advance to soft diet.
Reviewed with patient again regarding the risks of purging/retching and vomiting. Avoid NSAIDs.
Continue PPI twice a day
- Noted elevated total bilirubin but mainly indirect.
No abdominal pain/right upper quadrant pain, normal abdominal ultrasound.
-If constipated, start Colace 100 mg 2 tablets daily. Okay to take MiraLAX as needed.
Abdominal x-ray without any fecal burden.
No further GI workup at this time.
Original Note:
Today's Communication / Plan
-
as per plan
Assessment / Plan
-
24-year-old female past medical history of anorexia and anxiety presenting with vomiting. Of note she has history of black stool and epigastric pain which she went to the emergency room here on April 20 and had a hemoglobin 13 and was sent home, she
had persistent symptoms and went to [facility] and had endoscopy done which per report was normal. She then has had intermittent vomiting Which developed into severe vomiting and chest pain. She went to the ER and had a CT scan which showed
pneumomediastinum. I spoke with both the emergency room doctor and the cardiothoracic surgeon on admission. We had recommended transfer to a tertiary care center and Dr. Garza the emergency room physician spoke with Omar and they recommended a CT
esophagram to evaluate for extravasation and if there was no extravasation to monitor here at [place]. She continues to have nausea although improving. Tolerated clears this am. Asked to re-evaluate as patient because of persistent sx.
Impression:
Pneumomediastinum
-negative gastrograffin esophagram
Nausea and vomiting
Recommendations:
- Patient would like to try Full liquids (Sherbert and pudding)
- Discussed All antiemetics with patient and potential side effects. Patient would like to avoid Reglan. Will use Zofran 4 mg q 6 prn. Discussed to take prior to trying to eat.
- Check D Bili
- Repeat CBC, BMP, LFTs in am
- If with fevers, pain, worsening labs would check HIDA scan to r/o acute acalculous cholecystitis
- Check Abd Xray to eval stool burden, no BM since Saturday that may be contributing to N/V.
- PPI BID
- Avoid Benadryl (discussed with Patient and IM)
- Monitor QTc on antiemetics (currently WNL).
Subjective
Subjective
Date of Service: May 18, 2025
Patient states that she had vomiting after esophagram yesterday. States 'Benadryl works best'. After Benadryl she states that Reglan works best for her, discussed side effect potential of Reglan. After risks associated with Reglan (possible
tardive dyskinesia) patient decided not to continue with use of Reglan. She states that Zofran has worked for her in the past. Willing to retry this. Patient's QTc within normal limits (EKG this morning) at the present time she was able to
tolerate clear liquids this morning. No abdominal pain. Patient's last bowel movement was Saturday. Has been seen by psychiatry this morning (Dr. De La Cruz). I did discuss with him. Patient with temperature 99.6 last evening. Afebrile this morning.
White count up slightly today, 12.5. Patient denies any abdominal pain. Denies any dysuria. Total bilirubin 1.5 up from 1.4, will fractionate. ALT rising since admission from 18 max of 51 yesterday now 48. AST and alk phos within normal
limits. Ultrasound that was performed on 05/14/2025 showed that the gallbladder was physiologically distended with fluid and shows no shadowing calculi or wall thickening. No Joseph sign was elicited with exam.
Objective
Data Reviewed
Laboratory Data:
Laboratory Results
05/18/25 06:26
05/18/25 06:26
Laboratory Results
Magnesium 2.1 mg/dl (1.6-2.3) 05/18/25 06:26
Total Bilirubin 1.5 mg/dl (0.2-1.3) H 05/18/25 06:26
AST 28 U/L (14-36) 05/18/25 06:26
ALT 48 U/L (0-35) H 05/18/25 06:26
Alkaline Phosphatase 49 U/L (38-126) 05/18/25 06:26
Lipase 153 U/L (23-300) 05/14/25 11:50
Vital Signs and I&O:
Vital Signs
Temp Pulse Resp BP Pulse Ox
98.7 F 88 16 128/89 99
05/18/25 07:42 05/18/25 07:42 05/18/25 07:42 05/18/25 07:42 05/18/25 07:42
I&O
05/17/25 05/18/25 05/19/25
06:59 06:59 06:59
Intake Total 300 / 300 1200 / 1200 240 / 240
Balance 300 / 300 1200 / 1200 240 / 240
Physical Exam
Physical Exam
HEENT: Anicteric
Cardiology: Normal Sinus Rhythm
Pulmonary: Clear
GI: Soft, Non Distended, Tender (mild upper abd tenderness) and Normal Bowel Sounds
Extremities: No Edema
Neuro: Non Focal
[2025-05-18] MEDS: ZOFRAN 4 MG IV ×2 (12:55→19:01)
--- NOTE | 2025-05-18 14:34 | W.PN.HOSP.TC ---
Today's Communication/Plan
-
Discontinue Reglan, give Zofran 4 mg Q7PRN
Discontinue Wellbutrin XL as per psych consult
Continue PPI twice daily
Advance to full liquid diet
Repeat CBC, BMP, LFTs in the AM
Pulmonary consult sent
Assessment / Plan
Assessment / Plan
24 year old female with a past medical history of anorexia and bulimia who presented with chest pain s/p episode of vomiting the day before arrival. She reports exacerbation of anorexia for the past year after starting a new job after graduation
from college. Chest CT revealed pneumomediastinum without esophageal perforation.
# Pneumomediastinum s/p vomiting
# History of anorexia, BMI 16.7
CTA/PE revealed pneumomediastinum. CT chest with water soluble oral contrast revealed no contrast extravasation beyond esophagus.
Esophagus X-Ray: Nonionic contrast esophagogram demonstrated no evidence of thoracic esophageal obstruction, mass, ulcer, exacerbation/fecal cultures.
GI consulted again: Advance to full liquid diet, patient would like to avoid Reglan- so will give Zofran 4 mg q6PRN.
Repeat CBC, BMP, LFTs in the AM
PPI IV twice daily
If patient has fever, pain, worsening labs-will check HIDA scan to rule out acute acalculous cholecystitis.
Avoid Benadryl.
No BM since Saturday, XR abdomen showed no bowel obstruction or abnormal volume of fecal material in colon.
Pulmonary consult sent.
# Hypoglycemia
Glucose 85 today
# Nausea and vomiting
Continue Zofran 4 mg q6PRN, QTc wnl
#Leukocytosis�
13.5 on arrival, increased to 12.5 today
Likely reactive, no complaints warranting concerns of infection
Trend WBC, monitor for fever
# Depression
Discontinue Wellbutrin XL as per psychiatry consult.
Recommend returning to IOP program at [facility] when medically cleared.
Marijuana use
Full code, DVT SCDs
Anticipated Discharge: 24 - 48 hours
Subjective/Interval History
-
Date of Service: May 18, 2025
Patient had an episode of vomiting this morning. Patient endorses having abdominal soreness from the vomiting.
Objective Data
-
Labs:
Laboratory Results
05/18/25
06:26
WBC 12.5 H
Hgb 15.0
Hct 40.3
Plt Count 375
Sodium 136
Potassium 3.6
Chloride 100
Carbon Dioxide 24
BUN 5 L
Creatinine 0.5 L
Glucose 85
Calcium 9.4
Total Bilirubin 1.5 H
AST 28
ALT 48 H
Alkaline Phosphatase 49
Vital Signs:
Vital Signs
Temp Pulse Resp BP Pulse Ox
98.7 F 88 16 128/89 99
05/18/25 07:42 05/18/25 07:42 05/18/25 07:42 05/18/25 07:42 05/18/25 13:24
I&O
05/17/25 05/18/25 05/19/25
06:59 06:59 06:59
Intake Total 300 / 300 1200 / 1200 240 / 240
Balance 300 / 300 1200 / 1200 240 / 240
Review of Systems
-
History Source: Patient
All other systems: Reviewed and negative
Constitutional: Reports No Symptoms
EENT: Reports No Symptoms Reported
Respiratory: Reports No Symptoms
Cardiac: Reports No Symptoms
Abdomen/GI: Reports Other (Abdominal soreness)
Breast: Reports No Symptoms
Genitourinary: Reports No Symptoms
Musculoskeletal: Reports No Symptoms
Skin: Reports No Symptoms
Neuro: Reports No Symptoms
Endocrine: Reports No Symptoms
Hematologic / Lymphatic: Reports No Symptoms
Allergy / Immunology: Reports No Symptoms
Physical Exam
-
General: No Apparent Distress, Comfortable, Conversant and Cachectic
HEENT: Normocephalic, Atraumatic, Moist Mucous Membranes and Anicteric
Respiratory: Clear to Auscultation
Cardiac: Regular Rhythm and S1/S2
GI: Soft, Nontender, Nondistended, Normal Bowel Sounds and No Hepatosplenomegaly
Musculoskeletal: No Clubbing, No Cyanosis and No Edema
Skin: Warm and Dry
Neuro: Awake and AO x 3
Hematologic / Lymphatic: No Lymphadenopathy
Psych: Calm
Data Reviewed
-
Diagnostic Radiology: Report Reviewed by me and Discussed with Physician
Labs: Labs Reviewed by me and Discussed with Physician
Old Records: Reviewed
[2025-05-18 15:57] VITALS: BP 109/75
--- NOTE | 2025-05-18 16:30 | PTOTSP ---
Dysphagia Evaluation
No signs of oral/pharyngeal dysphagia or aspiration.
Recommend:
1. Continue Full Liquid diet (per GI)
2. Advance to regular, thin liquids if/when medically cleared
3. No further dysphagia therapy warranted at this time.
[2025-05-18 23:00] VITALS: BP 118/80
[2025-05-19] MEDS: ZOFRAN 4 MG IV (01:45)
[2025-05-19 06:57] LABS: Hematocrit 40.4 % (37.0-47.0); Hemoglobin 15.1 g/dL (12.0-16.0); Mean Corp Hgb Conc. 37.4 g/dL (33.0-37.0); Mean Corpuscular Volume 81.8 fL (81.0-99.0); Nucleated Red Blood Cells % 0 %; Platelet Count 399 10^3/uL (130-400); Red Cell Dist. Width 13.5 % (11.5-14.5)
[2025-05-19 07:23] LABS: ALT (SGPT) 40 U/L (0-35); AST (SGOT) 22 U/L (14-36); Albumin 4.8 g/dl (3.5-5.0); Alkaline Phosphatase 53 U/L (38-126); Blood Urea Nitrogen 9 mg/dl (7-17); Calcium 10.0 mg/dl (8.4-10.2); Carbon Dioxide 25 mmol/L (22-30); Chloride 101 mmol/L (98-107); Estimated Creatinine Clearance 108 ml/min; Glucose 109 mg/dl (70-99); Magnesium 2.2 mg/dl (1.6-2.3); Potassium 3.6 mmol/L (3.5-5.1); Sodium 137 mmol/L (135-145); Total Protein 7.7 g/dl (6.3-8.2); eGFR > 60.00
[2025-05-19] MEDS: PROTONIX IV 40 MG IV (08:23)
[2025-05-19] MEDS: NSS (PRESERVATIVE FREE) 10 ML IV (08:23)
--- NOTE | 2025-05-19 08:23 | CON.PUL ---
Consultation
Consultation Request
Date/Time Consultation Requested: 05/19/2025-9 AM
Date/Time Consultation Performed: 05/19/2025-930 AM
Requesting Provider: Hospitalist
Performing Provider: Dr. Austin
Reason for Consultation: Pneumomediastinum
Medical History
-
Chief Complaint: Emesis anticipate he has intestinal failure
History of Present Illness:
24-year-old former vaping and occasional marijuana smoking female with history of anorexia admitted 05/14/25 with episodes of green bile emesis was admitted for emesis and pneumomediastinum-pulmonary was consulted for pneumomediastinum 05/19/25.
Patient is actually been admitted for 4 days without progressive emesis of progressive pneumomediastinum. She denies any chest pain, fevers, chills, shortness of breath, wheezing, crepitus, abdominal pain, nausea, leg swelling, or focal weakness.
Past Medical History
Past Medical History: None ( Anorexia. Depression. Marijuana use. Former Vaper-quit April 2025.)
Social History
Tobacco: Vaping (former -quit April 2025)
Alcohol: Occasional
Drug: Marijuana
Personal: Single
Employment: Employed (On FMLA due to anorexia)
Occupational Exposures: . No known asbestos exposure
Environmental Exposures: . No known tuberculosis exposure
Family History
Family History: Reviewed & Not Pertinent (. Mother-anorexia and anxiety)
Allergies / Home Medications
Allergies
Allergy/AdvReac Type Severity Reaction Status Date / Time
Penicillins Allergy Hives Verified 05/14/25 11:40
Home Medications
�Medication �Instructions �Recorded �Confirmed �Last Taken �Type
bupropion HCl 150 mg 24 hr tablet, 150 mg PO DAILY Mental 04/20/25 05/14/25 05/13/25 History
extended release (Wellbutrin XL) Health/Anxiety
ondansetron HCl 8 mg tablet 8 mg PO Q8HPRN PRN nausea 04/20/25 05/14/25 Unknown History
spironolactone 50 mg tablet 50 mg PO DAILY Fluid 04/20/25 05/14/25 05/13/25 History
Retention/Swelling
Review of Systems
-
Unable to Obtain full review of systems at this time due to: Other ( per HPI)
Vitals / Labs / Diagnostic Testing
Vital Signs
Temp Pulse Resp BP Pulse Ox
98.6 F 79 14 118/80 98
05/18/25 23:00 05/18/25 23:00 05/18/25 23:00 05/18/25 23:00 05/18/25 23:00
Lab Data
05/19/25 06:38
05/19/25 06:38
Diagnostic Testing:
Physical Exam
-
Exam:
Thin young woman in no apparent distress
HEENT-atraumatic, normocephalic
Neck-supple, no JVD, no bruit
Heart-regular rate and rhythm-no murmurs, rubs or gallops
Chest-clear to auscultation, no wheezes, crackles
Back-no tenderness
Abdomen-soft, nontender, nondistended, no hepatosplenomegaly
Extremities-no cyanosis, clubbing, edema and good peripheral pulses
Integument-intact, no rashes, lesions or ecchymosis
Neurology-alert and oriented, nonfocal motor and sensory exam
Assessment
-
24-year-old former vaping and occasional marijuana smoking female with history of anorexia admitted 05/14/25 with episodes of green bile emesis was admitted for emesis and pneumomediastinum-pulmonary was consulted for pneumomediastinum 05/19/25.
Pneumomediastinum status post vomiting.
Anorexia-BMI 17.6.
Protein calorie malnutrition.
Leukocytosis
Conditions present prior to admission:
Anorexia.
Depression.
Marijuana use.
Former Vaper-quit April 2025.
Plan
.
Respiratory status is stable.-Patient has not progressed or deteriorated and is nontoxic since admission 5 days ago
Respiratory status is stable.
Supplemental oxygen if needed-currently on room air.
Nebulizers if needed-currently not bronchospastic.
Radiographs including chest x-ray, CT chest, esophageal contrast study were all reviewed.
She does not have signs or symptoms of mediastinitis and has not progressed or become more toxic in the last 5 days.
Patient is stable for proposed discharge-reviewed with Dr. Pierre.
Reviewed signs and symptoms of mediastinitis with patient as well as mother including fevers, chills, chest pain, more emesis, etc.-any signs of mediastinitis. The patient is to return to emergency room immediately-patient and mother are aware.
Reviewed with nursing, mother and primary team
Diagnostic data:
Chest x-ray 11/23/21-NAD..
Abdominal x-ray 05/18/25-no radiographic evidence for bowel obstruction
CT chest 05/14/25-pneumomediastinum, small amount of air surrounding the distal esophagus and left proximal mainstem bronchus, mild wall thickening involving anterior esophagus,, given history of emesis, esophageal perforation is not excluded.
CT chest 05/14/25-no evidence for contrast extravasation from the esophagus, small amount and pneumomediastinum appears stable, lungs are clear.
Esophageal single contrast study 05/17/25-no evidence for thoracic esophageal obstruction, mass, or extravasation/leak of contrast
Data Reviewed
-
Radiology: Report reviewed by me
CT Scan: Image personally visualized and interpreted and Report reviewed by me
Ultrasound: Report reviewed by me
Medical Tests (Nuc Med, Echo etc): Report reviewed by me
Labs: Labs reviewed by me
Old Records: Reviewed
Total Time Spent with Patient (in minutes): 65
[2025-05-19 08:35] VITALS: BP 98/63
--- NOTE | 2025-05-19 08:36 | W.PN.UPDATE ---
Update Note
Progress Note Update
I saw and evaluated the patient. I reviewed the resident�s note and agree with findings and plan as documented in the resident�s note.
No new complaints.
Patient seen and examined with RN Chrissy Pena as well as pt's mother present at bedside for the entirety of the interview and physical exam:
Gen: NAD, awake and alert, appears malnourished/cachectic
Eyes: EOMI, PERRLA, no scleral icterus.
Neck: supple.
CV: continues to remain RRR, +S1/S2, no m/r/g.
Resp: remains CTAB anteriorly, no rales, wheezes, or rhonchi.
Abd: continues to remain +BS, soft, NT, ND
Skin: No rashes.
Neuro: CN 2-12 intact, non-focal.
Psych: normal mood, slightly flat affect
CT chest 05/14/25: No evidence for contrast extravasation from the esophagus. Small amount of pneumomediastinum, which appears stable from earlier examination at 1426 hours. The lungs appear clear. No significant pleural effusion is seen bilaterally.
Abd U/S: Normal abdominal ultrasound.
Esophagram 05/17/25: Nonionic contrast esophagram demonstrating no evidence of thoracic esophageal obstruction, mass, ulcer or extravasation/leak of contrast.
Pneumomediastinum:
-imaging above, esophagram without extravasation/leak
-pulm saw in c/s, discussed with Dr. Austin, continue to monitor as outpt
N/V:
-Could be related to anorexia versus cannabinoid hyperemesis
-was on Reglan which was stopped as N/V most likely related to anorexia +/- bulimia. Also wanted to avoid extrapyramidal side effects.
-last QTc 434ms
-cont Zofran PRN
-GI saw in c/s and signed off
-advance diet as tolerated
Other problems:
Anorexia: BMI 16.7, Nutrition saw in c/s, moderate protein calorie malnutrition of chronic illness. Psych saw in c/s.
Leukocytosis, likely reactive, resolved
Depression: cont Wellbutrin
FULL/SCDs
Total time spent on d/c = 31 min. This included today's physical exam, progress note, review of laboratory and diagnostic data, preparation of discharge documents and prescriptions, and discussions about the pt's hospital course and discharge plan
with the patient and other medical assistant internal medicine involved in the patient's care.
--- NOTE | 2025-05-19 09:35 | W.PN.HOSP.TC ---
Today's Communication/Plan
-
Plan to discharge patient home today.
Assessment / Plan
Assessment / Plan
24 year old female with a past medical history of anorexia and bulimia who presented with chest pain s/p episode of vomiting the day before arrival. She reports exacerbation of anorexia for the past year after starting a new job after graduation
from college. Chest CT revealed pneumomediastinum without esophageal perforation.
Assessment/plan:
# Pneumomediastinum s/p vomiting
# History of anorexia, BMI 16.7
# Moderate protein calorie malnutrition of chronic illness
CTA/PE revealed pneumomediastinum. CT chest with water soluble oral contrast revealed no contrast extravasation beyond esophagus.
Esophagus X-Ray: Nonionic contrast esophagogram demonstrated no evidence of thoracic esophageal obstruction, mass, ulcer, exacerbation/fecal cultures.
GI consulted and signed off
Continue full liquid diet PPI IV twice daily, and Zofran 4 Mg q6h PRN. Patient would like to avoid Reglan.
If patient has fever, pain, worsening labs-will check HIDA scan to rule out acute acalculous cholecystitis.
Avoid Benadryl.
Pulmonary Dr. Austin, continue to monitor patient outpatient
# Nausea and vomiting
Continue Zofran 4 mg q6PRN, QTc wnl
Could be related to anorexia versus cannabinoid hyperemesis syndrome
Last QTc 434ms
#Leukocytosis�
Likely reactive, resolved, no complaints warranting concerns of infection
Trend WBC, monitor for fever
# Depression
Discontinue Wellbutrin XL as per psychiatry consult.
Recommend returning to IOP program at [facility] when medically cleared.
Marijuana use
Full code,
DVT prophylaxis SCDs
Anticipated Discharge: Today
Subjective/Interval History
-
Date of Service: May 19, 2025
Patient had an episode of vomiting after eating bread last night. She passed a bowel movement yesterday and describes it as 'loose stool '. Patient is smiling.
Objective Data
-
Labs:
Laboratory Results
05/19/25
06:38
WBC 12.3 H
Hgb 15.1
Hct 40.4
Plt Count 399
Sodium 137
Potassium 3.6
Chloride 101
Carbon Dioxide 25
BUN 9
Creatinine 0.6
Glucose 109 H
Calcium 10.0
Total Bilirubin 1.6 H
AST 22
ALT 40 H
Alkaline Phosphatase 53
Vital Signs:
Vital Signs
Temp Pulse Resp BP Pulse Ox
98.9 F 82 16 98/63 100
05/19/25 08:35 05/19/25 08:35 05/19/25 08:35 05/19/25 08:35 05/19/25 08:35
I&O
05/18/25 05/19/25 05/20/25
06:59 06:59 06:59
Intake Total 1200 / 1200 1020 / 1020 720 / 720
Balance 1200 / 1200 1020 / 1020 720 / 720
Review of Systems
-
History Source: Patient
All other systems: Reviewed and negative
Constitutional: Reports No Symptoms
EENT: Reports No Symptoms Reported
Respiratory: Reports No Symptoms
Cardiac: Reports No Symptoms
Abdomen/GI: Reports No Symptoms
Breast: Reports No Symptoms
Genitourinary: Reports No Symptoms
Musculoskeletal: Reports No Symptoms
Skin: Reports No Symptoms
Neuro: Reports No Symptoms
Endocrine: Reports No Symptoms
Hematologic / Lymphatic: Reports No Symptoms
Allergy / Immunology: Reports No Symptoms
Physical Exam
-
General: Comfortable, Conversant and Cachectic
HEENT: Normocephalic, Atraumatic, Moist Mucous Membranes and Anicteric
Respiratory: Clear to Auscultation
Cardiac: Regular Rhythm and S1/S2
GI: Soft, Nontender, Nondistended and Normal Bowel Sounds
Genito-urinary: No Costovertebral Tender
Musculoskeletal: No Clubbing
Skin: Warm and Dry
Neuro: Awake and AO x 3
Hematologic / Lymphatic: No Lymphadenopathy
Psych: Calm
Data Reviewed
-
Labs: Labs Reviewed by me and Discussed with Physician
Old Records: Reviewed
--- NOTE | 2025-05-19 10:09 | W.DCSUMMARY ---
Discharge Summary
Discharge Data
Date of Admission: 05/14/25
Date of Discharge: 05/19/25
-
Pending Results: No
Hospital Course
24-year-old female with a past medical history of anorexia and bulimia presented with chest pain status post episode of vomiting the day before arrival. She reported exacerbation of anorexia for the past year episode and new job after graduation
from college. CT chest revealed pneumomediastinum without esophageal perforation. Esophageal x-ray showed no evidence of thoracic esophageal obstruction/mass/ulcer. GI was consulted. Recommended continuing full liquid diet, PPI IV twice daily,
and Zofran 4 Mg every 6 hours as needed. Patient would like to avoid Reglan. Avoiding Benadryl. Pulmonary consulted and recommended outpatient follow-up. Patient's nausea and vomiting could be related to anorexia versus cannabinoid hyperemesis
syndrome. Patient had elevated WBC count but was likely reactive and resolved. Psychiatry was consulted and they recommended discontinuing Wellbutrin XL and returning to IOP program at [facility] when medically cleared.
Discharge Plan
-
Patient Disposition: Home (Routine Discharge)
Discharge Diagnosis/Procedures: Nausea and vomiting likely related to anorexia +/- bulimia versus cannabinoid hyperemesis
Condition: Good
Diet: No restrictions
Activity: As tolerated
Driving Restrictions: As prior to admission
Bathing Restrictions: None
Referrals:
PRIVATE,PHYSICIAN [Family Provider, Internal Medicine] - in less than 1 week
Prescriptions:
New
pantoprazole [Protonix] 40 mg tablet,delayed release (DR/EC)
40 mg PO DAILY Qty: 30 0RF
Continued
ondansetron HCl 8 mg Tablet
8 mg PO Q8HPRN PRN (Reason: nausea) Qty: 30 0RF
Discontinued
spironolactone 50 mg Tablet
50 mg PO DAILY
bupropion HCl [Wellbutrin XL] 150 mg Tablet Extended Release 24 Hr
150 mg PO DAILY
Discharge Orders:
Discharge Patient (As Directed); Ordered 05/19/25
Ordered By: Jayson Pierre
Discharge Date and Time
Discharge Date/Time: 05/19/25 10:51
Print Language: HEBREW
--- NOTE | 2025-05-19 10:51 | PTCARENOTE ---
pt's affect slightly flat. tolerating full liquid diet, independent, vss, for discharge to home today
== END 2025-05-19 10:51 | disposition home or self-care (01) | DRG 883 ==
LOC: 3 WEST ACU 20:22
PROVIDERS: Clinical Nurse Specialist Family Health; Emergency Medicine; Radiology Diagnostic Radiology; ADMITTING PHYSICIAN Internal Medicine; ATTENDING PHYSICIAN Internal Medicine; CONSULT PHYSICIAN Internal Medicine Critical Care Medicine; CONSULT PHYSICIAN Internal Medicine Gastroenterology; CONSULT PHYSICIAN Psychiatry & Neurology Psychiatry; EMERGENCY PHYSICIAN Emergency Medicine
PROC: BD11ZZZ Fluoroscopy of Esophagus (ICD-10-PCS; 2025-05-17)
DX: F50.00 Anorexia nervosa, unspecified (principal); E44.0 Moderate protein-calorie malnutrition; Z68.1 Body mass index [BMI] 19.9 or less, adult; J98.2 Interstitial emphysema; R10.9 Unspecified abdominal pain; D72.829 Elevated white blood cell count, unspecified; F32.A Depression, unspecified; R11.14 Bilious vomiting; F12.90 Cannabis use, unspecified, uncomplicated; E16.2 Hypoglycemia, unspecified; F41.9 Anxiety disorder, unspecified; E88.A Wasting disease (syndrome) due to underlying condition; Z88.0 Allergy status to penicillin; Z86.59 Personal history of other mental and behavioral disorders; Z87.891 Personal history of nicotine dependence
CPT/HCPCS: 71250; 71275; 74018; 74220; 76700; 80053; 82248; 82962; 83690; 83735; 84484; 84703; 85025; 85379; 92610; 93005; 96361; 96365; 96375; 96376; 99291; Q9967

== ENCOUNTER 2025-05-22 17:01 | Emergency (ER) | payer BC, SELFPAY ==
[2025-05-22 17:04] VITALS: BP 145/91
--- NOTE | 2025-05-22 17:57 | EDRN ---
Dr. Kimble in room w/pt at this time.
[2025-05-22] MEDS: REGLAN 10 MG IV (18:25)
[2025-05-22] MEDS: BENADRYL 12.5 MG IV (18:25)
[2025-05-22] MEDS: NSS 1000 IV (18:30)
[2025-05-22] MEDS: PROTONIX IV 40 MG IV (18:31)
[2025-05-22 18:36] VITALS: BP 141/94
[2025-05-22 18:43] VITALS: BMI 16.4
--- NOTE | 2025-05-22 18:44 | EDRN ---
Pt just vomited a large amount of bile lona 250 mL. Pt had been taking ice chips rapidly just prior. Pt advised to wait before more ice chips and take small amounts slowly. Pt agreed w/ this plan.
[2025-05-22 18:56] LABS: HCG, Serum Qualitative Screen Negative
[2025-05-22 19:05] LABS: ALT (SGPT) 25 U/L (0-35); AST (SGOT) 18 U/L (14-36); Albumin 5.2 g/dl (3.5-5.0); Alkaline Phosphatase 58 U/L (38-126); Blood Urea Nitrogen 10 mg/dl (7-17); Calcium 10.2 mg/dl (8.4-10.2); Carbon Dioxide 25 mmol/L (22-30); Chloride 105 mmol/L (98-107); Estimated Creatinine Clearance 91 ml/min; Glucose 100 mg/dl (70-99); Lipase 557 U/L (23-300); Magnesium 2.2 mg/dl (1.6-2.3); Potassium 3.4 mmol/L (3.5-5.1); Sodium 140 mmol/L (135-145); Total Protein 8.2 g/dl (6.3-8.2); eGFR > 60.00
[2025-05-22] MEDS: ATIVAN 1 MG PO (19:42)
[2025-05-22 20:03] LABS: Hematocrit 40.8 % (37.0-47.0); Hemoglobin 15.4 g/dL (12.0-16.0); Mean Corp Hgb Conc. 37.7 g/dL (33.0-37.0); Mean Corpuscular Volume 80.6 fL (81.0-99.0); Nucleated Red Blood Cells % 0 %; Platelet Count 335 10^3/uL (130-400); Red Cell Dist. Width 13.8 % (11.5-14.5)
[2025-05-22 20:13] LABS: Microcytosis 3+; Normal RBC Morphology No; Ovalocytes Occasional
[2025-05-22 20:14] LABS: Spherocytes 1+
[2025-05-22 20:15] LABS: Stomatocytes 2+
--- NOTE | 2025-05-22 20:56 | ED.GENMED ---
History of Present Illness
General
Chief Complaint: Abdominal Symptoms
Source: patient
Exam Limitations: none
Time Seen by Provider: 05/22/25 17:48
Nursing documentation reviewed up to this point in time: agreed with
History of Present Illness
History of Present Illness:
Patient with history of anorexia and bulimia, recently discharged from the hospital after being treated for pneumomediastinum with intractable vomiting, presents to ED secondary to recurrent persistent vomiting despite taking Zofran at home. Denies
fever or chills. Denies abdominal pain. Denies diarrhea. Denies dizziness or weakness. Patient does report mild chest pain, but much improved from when she was admitted.
Past History
Past History
ED Past Medical History: Other (Eating disorder)
ED Past Surgical History: None
Social History
Tobacco: Non-smoker
Alcohol: Occasional
Drug: Marijuana (Previous marijuana use)
Personal: Single
Living: with roommate
Review of Systems
Review of Systems
Allergies reviewed?: Yes
All Other Systems: ROS reviewed and negative except as documented in HPI and ROS
Constitutional: Reports no symptoms; Denies fever
Respiratory: Reports no symptoms; Denies trouble breathing
Cardiac: Reports chest pain; Denies palpitations
ABD/GI: Reports nausea and vomiting; Denies abdominal pain or diarrhea
Musculoskeletal: Reports no symptoms
Skin: Reports no symptoms
Neurological: Reports no symptoms
Phy Exam
Physical Exam
Physical Exam:
Physical Exam
General: mild distress, not acutely ill. afebrile
Head: nc/at. eomi
Neck: supple. no meningeal signs.
Heart: s1/s2 regular rate and rhythm
Lungs: no acute respiratory distress. clear bilaterally
Abdomen: normal bowel sounds. not tender.
Neuro: alert and oriented x 3. no focal neurological deficits
Skin: no rash
Psychiatric: well kept. interactive and cooperative
Extremities: no edema. no calf tenderness.
Course
Orders/Labs/Results
Orders:
Orders
05/22/25 18:01
0.9% Sodium Chloride 1000 ml [Nss] 1,000 ml IV BOLUS
Diphenhydramine [Benadryl] 12.5 mg IV NOW STA
Metoclopramide [Reglan] 10 mg IV NOW STA
Pantoprazole [Protonix IV] 40 mg IV NOW STA
Test Result ONCE
05/22/25 18:02
Lorazepam [Ativan] 1 mg PO NOW STA
05/22/25 18:32
Complete Blood Count/With Diff Urgent
Comprehensive Metabolic Panel Urgent
HCG, Serum Qualitative Screen Urgent
Lipase Urgent
Magnesium Urgent
Abnormal Lab Results
05/22/25
18:32
WBC 13.5 H 10^3/uL
(4.8-10.8)
MCV 80.6 L fL
(81.0-99.0)
MCHC 37.7 H g/dL
(33.0-37.0)
Abs Immat Gran (auto) 0.1 H 10^3/uL
(0-0.05)
Absolute Neuts (auto) 11.6 H 10^3/uL
(1.4-6.5)
Absolute Lymphs (auto) 1.1 L 10^3/uL
(1.2-3.4)
Immature Gran % 0.6 H %
(0-0.5)
Neutrophils % 86.1 H %
(42.2-75.2)
Lymphocytes % 8.2 L %
(20.5-51.1)
Potassium 3.4 L mmol/L
(3.5-5.1)
Glucose 100 H mg/dl
(70-99)
Total Bilirubin 1.8 H mg/dl
(0.2-1.3)
Albumin 5.2 H g/dl
(3.5-5.0)
Lipase 557 H U/L
(23-300)
05/22/25 18:32
05/22/25 18:32
Vital Signs
Initial and Last Documented VS:
Initial Vital Signs
Temp Pulse Resp BP Pulse Ox
99.0 F 95 18 145/91 97
05/22/25 17:04 05/22/25 17:04 05/22/25 17:04 05/22/25 17:04 05/22/25 17:04
Last Documented Vital Signs
Temp Pulse Resp BP Pulse Ox
99.0 F 97 18 112/75 97
05/22/25 17:04 05/22/25 22:10 05/23/25 01:02 05/23/25 00:55 05/23/25 01:02
MDM/Problems Addressed
MDM/Problems Addressed:
Patient reports moderate improvement in symptoms after treatment. Otherwise, patient remains afebrile, hemodynamically stable, and nontoxic appearing. As patient recently had an extensive workup for similar complaint, I do not feel that another
admission is warranted at this time. Patient and mother agree with treatment plan. As such, patient will be discharged home with short course of Ativan, to be used, as needed, along with Reglan, if Zofran give her enough improvement. Patient
already has an appointment with PCP early next week, with whom she will follow-up for reevaluation
*Pulse Oximetry
SaO2: 100
Oxygen Mode of Delivery: Room air
Patient hypoxic: no
*Critical Care Note
Total Time (30-74mins, 75-104mins- exclusive of procedures): Not Applicable
ED Attending Note
-
Portions of this chart may have been created with voice recognition software.� Occasional wrong word or��sound alike� substitutions may have occurred due to the inherent limitations of voice recognition software.
Discharge Plan
Departure
Patient Disposition: Home (Routine Discharge)
Date of Disposition: 05/23/25
Time of Disposition: 00:48
Patient with high blood pressure during this ER visit?: Yes
Condition: Fair
Discharge Problem:
Nausea and vomiting
Instructions: Nausea and Vomiting, Adult (DC)
Prescriptions:
New
metoclopramide HCl [Reglan] 10 mg tablet
10 mg PO Q8HPRN PRN (Reason: nausea and vomiting) Qty: 14 0RF
lorazepam [Ativan] 0.5 mg tablet
0.5 mg PO TID PRN (Reason: nausea and vomiting) Qty: 10 0RF
No Action
pantoprazole [Protonix] 40 mg tablet,delayed release (DR/EC)
40 mg PO DAILY Qty: 30 0RF
ondansetron HCl 8 mg Tablet
8 mg PO Q8HPRN PRN (Reason: nausea) Qty: 30 0RF
Referrals:
Yaquelin Genao PA-C [Family Provider, Family Practice]
Activity Restrictions/Additional Instructions:
As discussed, please follow-up with your primary care physician, as scheduled next week, for reevaluation. Your prescriptions have been sent electronically to [facility] pharmacy in [place].
Interventions
Interventions:
*Risk Screen - Suicide Last Done: 05/22/25 17:04
*General Assessment Last Done: 05/22/25 18:40
*Neglect/Abuse Screening Last Done: 05/22/25 18:36
*ED- Fall Risk Assessment Last Done: 05/22/25 18:36
*ED COVID-19 Vaccine History Last Done: 05/22/25 18:36
*Nursing Disposition Last Done: 05/23/25 01:02
VB-Yrwjye-Aygutoqhjd Assessment Last Done: 05/22/25 18:36
Discharge Date and Time
Discharge Date/Time: 05/23/25 01:03
Print Language: FRENCH
[2025-05-23] VITALS: BP 102/66
[2025-05-23 00:55] VITALS: BP 112/75
== END 2025-05-23 01:03 | disposition home or self-care (01) ==
LOC: EMR 17:01
PROVIDERS: EMERGENCY PHYSICIAN Emergency Medicine; FAMILY PHYSICIAN Physician Assistant Medical
DX: R11.2 Nausea with vomiting, unspecified (principal); F50.9 Eating disorder, unspecified; R07.9 Chest pain, unspecified
CPT/HCPCS: 96374; 96375; 96361; 99284; 80053; 83690; 83735; 84703; 85025

== ENCOUNTER → 2025-06-24 10:21 | Outpatient (REF) | payer BC, SELFPAY | LOC: CPAP 10:21 | PROVIDERS: ATTENDING PHYSICIAN Obstetrics & Gynecology | DX: Z12.4 Encounter for screening for malignant neoplasm of cervix (principal) | CPT/HCPCS: 87491; 87591 ==